=== PATIENT | female | born 1975 | race Caucasian/White ===

== ENCOUNTER → 2017-04-07 | Outpatient (CLI) | payer BC | END | disposition home or self-care (01) | LOC: LAB.O 10:43 | PROVIDERS: ATTEND Obstetrics & Gynecology | DX: N94.10 Unspecified dyspareunia (principal); N94.6 Dysmenorrhea, unspecified ==

== ENCOUNTER → 2017-08-21 | Outpatient (CLI) | payer BC ==
--- NOTE | 2017-08-23 13:40 | MAM ---
EXAM DESCRIPTION: 3D Screening BILATERAL : Digital Mammography. CLINICAL HISTORY: 42 years Female SCREENING . No complaints. No family history of breast cancer. Premenopausal.. COMPARISON: Baseline study at this facility.. No prior reports available. TECHNIQUE: Bilateral CC and MLO projection full-field images, 3-D tomosynthesis digital mammographic technique. Also bilateral synthesized CC/ MLO full-field images. CAD not utilized. FINDINGS: The breast parenchymal density pattern is: Heterogeneously dense breast tissue, which may obscure small masses. No skin thickening or nipple retraction bilateral solitary microcalcifications. Asymmetric collection of dense fibroglandular tissues in the upper-outer quadrant of the middle and posterior third of the right breast at the 900-200 clock position. Scattered small microcalcifications. Similar appearing density much smaller in the upper outer quadrant of the left breast also associated with microcalcifications. Location in the left breast is posterior third at 1000 clock position. No suspicious microcalcifications bilaterally. IMPRESSION: BI-RADS CATEGORY: 0 - INCOMPLETE- Need additional imaging evaluation. FOLLOW-UP: Recall for additional imaging: Bilateral 2-D digital full field LM projections followed by targeted bilateral breast ultrasound of the regions of interest.. Written communication concerning the IMPRESSION and Follow-up, will be mailed to the patient and referring health care provider. Electronically signed by: Conrado Vega MD 08/23/2017 1:39 PM MILLWORK ESTIMATOR
== END ==
LOC: MAMMO 09:55
PROVIDERS: ATTEND Obstetrics & Gynecology
DX: Z12.31 Encounter for screening mammogram for malignant neoplasm of breast (principal)
CPT/HCPCS: 77063; G0202

== ENCOUNTER → 2017-08-22 | Outpatient (CLI) | payer BC | LOC: LAB.O 08:10 | PROVIDERS: ATTEND Obstetrics & Gynecology | DX: Z01.411 Encounter for gynecological examination (general) (routine) with abnormal findings (principal); I10 Essential (primary) hypertension ==

== ENCOUNTER → 2017-09-12 | Outpatient (CLI) | payer BC ==
--- NOTE | 2017-09-13 11:24 | US ---
EXAM DESCRIPTION: Breast,Bilateral: Ultrasound CLINICAL HISTORY: 42 yearsFemaleABNORMAL MAMMO COMPARISON: Digital 3-D tomosynthesis bilateral breast on this visit. Bilateral 3-D tomosynthesis digital screening study 08/21/2017. TECHNIQUE: Transcutaneous scanning of the bilateral breasts utilizing two-dimensional and Doppler modes. Scanning performed by the product operations associate and Dr. Vega. FINDINGS: Scanning of the left breast at the 100 clock position 7 cm from the nipple and the 1000 clock position 7 cm from the nipple. Also scanning the right breast at the 1000 clock position 8 cm from the nipple. Predominantly fibroglandular tissues are noted in the regions of interest bilaterally. In the left breast is a oval-shaped well-circumscribed hypoechoic lesion with parallel orientation with no posterior acoustic features. 7.6 x 5.3 mm. Minimal central vascularity. Most likely a lymph node. IMPRESSION: 1. Bi-Rads Category 2: Benign. 2. Please refer to bilateral 3-D tomosynthesis digital diagnostic mammographic examination and report on this visit. The FINDINGS and the follow-up plan were reviewed in person with the patient after the examination. Written communication explaining the IMPRESSION and follow-up will be mailed to the patient and referring care provider. Electronically signed by: Conrado Vega MD 09/13/2017 11:23 AM BUREAU DIRECTOR
--- NOTE | 2017-09-13 11:25 | MAM ---
EXAM DESCRIPTION: 3D Diagnostic, Bilateral : Digital Mammography. CLINICAL HISTORY: 42 years Female ABNORMAL MAMMO . Bilateral regions of focal asymmetry.. COMPARISON: 3-D digital screening bilateral study 08/21/2017. Bilateral breast ultrasound following this examination.. Report from prior examination also reviewed. TECHNIQUE: Bilateral LM projection full-field images, 3-D tomosynthesis digital mammographic technique. Also bilateral synthesized LM full-field images. CAD not utilized. FINDINGS: The breast parenchymal density pattern is: Heterogeneously dense breast tissue, which may obscure small masses. No skin thickening or nipple retraction . Again noted is focal asymmetry in the 1000 clock position of the upper outer quadrant of the right breast, 9-10 cm from the nipple. No ascites scattered microcalcifications. Also focal asymmetry in the left breast at the 100 clock position 7 cm from the nipple in the middle third of the breast. No associated abnormal appearing microcalcifications bilaterally. ULTRASOUND: Scanning of the left breast at the 100 clock position 7 cm from the nipple and the 1000 clock position 7 cm from the nipple. Also scanning the right breast at the 1000 clock position 8 cm from the nipple. Predominantly fibroglandular tissues are noted in the regions of interest bilaterally. In the left breast is a oval-shaped well-circumscribed hypoechoic lesion with parallel orientation with no posterior acoustic features. 7.6 x 5.3 mm. Minimal central vascularity. Most likely a lymph node. IMPRESSION: BI-RADS CATEGORY: 2 - BENIGN FINDINGS. FOLLOW UP: Return to routine digital bilateral screening, one year interval from August 2017. The FINDINGS and the follow-up plan were reviewed in person with the patient after the examination. Written communication explaining the IMPRESSION and follow-up will be mailed to the patient and referring care provider. According to the [employer], yearly mammograms are recommended starting at age 40 and continuing as long as a woman is in good health. Any breast change noted on a breast self-exam should be reported promptly to the patient's healthcare provider. Breast MRI is recommended for women with an approximately 20-25% or greater lifetime risk of breast cancer, including women with a strong family history of breast or ovarian cancer and women who have been treated for Hodgkin's disease. A negative mammographic report should not delay tissue diagnosis in patients with significant clinical history or physical findings. Extremely dense breast tissue limits the sensitivity of digital mammography. Electronically signed by: Conrado Vega MD 09/13/2017 11:24 AM HAND STAMPER
== END | disposition home or self-care (01) ==
LOC: MAMMO 10:22
PROVIDERS: ATTEND Obstetrics & Gynecology
DX: R92.8 Other abnormal and inconclusive findings on diagnostic imaging of breast (principal)
CPT/HCPCS: 76641; G0204; G0279

== ENCOUNTER 2018-12-10 07:56 | Inpatient (IN) | payer SELFPAY ==
[2018-12-10] MEDS ORDERED: PANTOPRAZOLE SODIUM IV 40 MG VIAL IV ONE (08:24)
[2018-12-10] MEDS ORDERED: MORPHINE SULFATE INJ 10 MG/ML VIAL IV ONE ×2 (08:24→09:47)
[2018-12-10] MEDS ORDERED: ONDANSETRON INJ 4 MG/2 ML VIAL IV ONE (08:24)
[2018-12-10] MEDS ORDERED: SODIUM CHLORIDE 0.9% 1000ML 1,000 ML IVS ONE (08:24)
[2018-12-10] MEDS ORDERED: ceFAZolin SODIUM 2 GRAMS PREMI 2 GM in PREMIX BAG 1 BAG IVPB ONE (08:26)
[2018-12-10] MEDS ORDERED: ceFAZolin SODIUM 2 GRAMS PREMI 50 ML IVPB ONE (08:40)
[2018-12-10] MEDS ORDERED: PROMETHAZINE HCL INJ 25 MG/ML VIAL ONE ×3 (09:38→19:41)
[2018-12-10] MEDS ORDERED: SODIUM CHLORIDE 0.9% 50ML 50 ML ONE ×3 (09:39→19:41)
[2018-12-10] MEDS ORDERED: MAGNESIUM SULFATE PREMIX 4GM 4 GM in PREMIX BAG 1 BAG IVPB ONE (09:46)
[2018-12-10] MEDS ORDERED: POTASSIUM CHLORIDE INJ 40 MEQ 40 MEQ in SODIUM CHLORIDE 0.9% 250ML 250 ML IVPB ONE (09:47)
[2018-12-10] MEDS ORDERED: PROMETHAZINE HCL INJ 25 MG in SODIUM CHLORIDE 0.9% 50ML 50 ML IVPB ONE (09:49)
[2018-12-10] MEDS ORDERED: MAGNESIUM SULFATE PREMIX 4GM 50 ML IVPB ONE (10:08)
[2018-12-10] MEDS ORDERED: SODIUM CHLORIDE 0.9% 250ML 250 ML ONE (10:11)
--- NOTE | 2018-12-10 10:11 | CT ---
EXAM DESCRIPTION: Abdomen/Pelvis w/Contrast CLINICAL HISTORY: 43 years Female, severe abd pain, nv 24 hours COMPARISON: CT abdomen and pelvis 11/25/2010. TECHNIQUE: CT of the abdomen and pelvis was acquired with IV contrast material. Coronal and sagittal reformations were provided. This exam was performed according to our departmental dose-optimization program, which includes automated exposure control, adjustment of the mA and/or kV according to patient size and/or use of iterative reconstruction technique. CT ABDOMEN FINDINGS: Lung bases: Clear. Liver: There is hypoattenuation of the liver parenchyma. The liver is enlarged measuring up to 20.1 cm at the midclavicular line. Gallbladder and biliary: Mild hyperdensity within the gallbladder may represent vicarious excretion of contrast although gallbladder sludge diffusely: The gallbladder may be present. No biliary ductal dilatation. Pancreas: Pancreas appears diffusely edematous with moderate peripancreatic shavings present. There is homogeneous enhancement of the pancreatic parenchyma. No surrounding fluid collection. Spleen: Normal. Kidneys and adrenal glands: Normal. GI tract: Mildly dilated distal esophagus without mucosal thickening but with moderate air-fluid level present. Stomach is unremarkable. There is mucosal thickening and surrounding stranding of the duodenum. No small bowel traction. Peritoneal cavity: Mild intra-abdominal free fluid is present. No intra-abdominal free air. Retroperitoneum and lymph nodes: Normal. Vascular: Minimal atherosclerosis. No evidence of portal vein thrombosis or splenic artery aneurysm. Musculoskeletal and soft tissues: No acute fracture or aggressive appearing osseous lesion. Soft tissues are unremarkable. CT PELVIS FINDINGS: GI tract: There is moderate mucosal thickening and pericolic stranding involving the distal colon. Appendix is absent. Urinary bladder: Normal. Uterus and adnexa: Uterus not well-visualized and may be small or atrophic versus surgically absent. Phleboliths are within the right and left hemipelvis. IMPRESSION: 1. Pancreatic findings likely representing acute edematous pancreatitis with moderate perinephric fluid and stranding but without discrete fluid collection. Recommend lab correlation with pancreatic enzymes. 2. Thickening and surrounding stranding of the duodenum may represent reactive duodenitis from adjacent pancreatic process. 3. Thickening and surrounding stranding of the transverse colon. This is nonspecific and may represent superimposed infectious or inflammatory colitis versus reactive process from the adjacent pancreatitis. 4. Mild ascites. 5. Enlarged and fatty liver. Electronically signed by: Aly Ding MD 12/10/2018 10:09 AM QUARTER TRIMMER
[2018-12-10] MEDS ORDERED: POTASSIUM CHLORIDE 40mEq 20ML VIAL ONE (10:12)
--- NOTE | 2018-12-10 11:44 | US ---
EXAM DESCRIPTION: Abdomen,Limited: ULTRASOUND. CLINICAL HISTORY: pancreatitis, eval ruq COMPARISON: CT scan of abdomen and pelvis on this visit. TECHNIQUE: Transabdominal scannin-dimensional and Doppler modes. FINDINGS: Gallbladder: normal size, shape, echogenicity; no intraluminal stones or sludge. No fluid around the gallbladder. No wall thickening. 1.1 mm. Non-tender with transducer pressure. Common bile duct: caliber 2.7 mm within normal limits. Liver: Increased echogenicity; contour liver capsule smooth where seen. No fluid around the liver. Intrahepatic biliary ducts normal caliber. Doppler hepatopedal flow and normal caliber portal vein.. Long axis right lobe 15.6 cm. Pancreas: normal size and echogenicity. Duct not seen. Proximal abdominal aorta: Normal caliber proximal and mid segment. Distal segment obscured by intestinal gas.. IVC: visualized and normal caliber. Right kidney: long axis measures 10.8 cm. Normal Echogenicity. Normal cortical thickness. No hydronephrosis IMPRESSION: Fatty liver but not enlarged. Vascularity unremarkable. Normal intrahepatic and extrahepatic ducts. No ascites. Gallbladder pancreas are negative. Right kidney unremarkable. Major vessels normal caliber. Electronically signed by: Conrado Vega MD 12/10/2018 11:41 AM JITNEY DRIVER
[2018-12-10] MEDS ORDERED: KCL 40MEQ/NS 1,000 ML IVS ONE (12:00)
--- NOTE | 2018-12-10 12:01 | ED.PDOC ---
History of Present Illness - General Chief Complaint: Abdominal Pain Time Seen by Provider: 12/10/18 07:58 Source: patient Exam Limitations: no limitations - History of Present Illness Initial Comments: the patient is a 43-year-old female presenting to the emergency room secondary to 24 hours of severe nausea and vomiting and abdominal pain. Abdominal pain is primarily periumbilical. It is worse with movement. It is worse with eating. It is worse with palpation. No history of any trauma. No history of any pancreatitis in the past. No heavy drinking. She does have a history of apparently untreated hypertension and cholesterolemia or hypyceridemia. Her only medication is lisinopril. She does have a family history of pancreatitis with her mother having had pancreatitis. The patient reports that for the last 4 months she has had some mild nausea with intermittent vomiting in the mornings. There is some questionable history of gastroesophageal reflux disease. Otherwise she appears to have largely been healthy with the exception of multiple surgeries and a hysterectomy. Timing/Duration: 24 hours Severity: severe Improving Factors: nothing Worsening Factors: eating, movement Associated Symptoms: diaphoresis, fever/chills, loss of appetite, nausea/vomiting Allergies/Adverse Reactions: Allergies NO KNOWN ALLERGY Allergy (Verified 12/10/18 08:10) Home Medications: Ambulatory Orders ALPRAZolam [Xanax] 0.5 mg PO PRN 12/10/18 Lisinopril 10 mg PO DAILY 12/10/18 Review of Systems - Review of Systems Constitutional: States: malaise, weakness EENTM: States: no symptoms reported Respiratory: States: no symptoms reported Cardiology: States: no symptoms reported Gastrointestinal/Abdominal: States: abdominal pain, nausea, vomiting. Denies: constipation, diarrhea Genitourinary: States: no symptoms reported Musculoskeletal: States: no symptoms reported Skin: States: no symptoms reported Neurological: States: no symptoms reported Endocrine: States: no symptoms reported All other Systems: No Change from Baseline Past Medical History (General) - Patient Medical History Hx Seizures: No Hx Stroke: No Hx Dementia: No Hx Asthma: No Hx of COPD: No Hx Cardiac Disorders: No Hx Congestive Heart Failure: No Hx Pacemaker: No Hx Hypertension: Yes Hx Thyroid Disease: No Hx Diabetes: Yes - pre-diabetic Hx Gastroesophageal Reflux: No Hx Renal Disease: No Hx Cancer: No Hx of HIV: No Hx Hepatitis C: No Hx MRSA: No Surgical History: appendectomy, Hysterectomy - Vaccination History Hx Tetanus, Diphtheria Vaccination: No Hx Influenza Vaccination: No Hx Pneumococcal Vaccination: No Immunizations Up to Date: No - Social History Hx Tobacco Use: No Hx Chewing Tobacco Use: No Hx Alcohol Use: No Hx Substance Use: No Hx Substance Use Treatment: No Hx Depression: No Feels Threatened In Home Enviroment: No Feels Threatened In a Relationship: No Hx Physical Abuse: No Hx Emotional Abuse: No Hx Suspected Abuse: No - Female History Patient is a Female of Child Bearing Age (10 -59 yrs old): No Patient : No Family Medical History - Family History Mother Family History: Unknown Living Status: Unknown Physical Exam - Physical Exam General Appearance: Alert, Obvious distress, Ill Appearing Eye Exam: bilateral normal Ears, Nose, Throat: hearing grossly normal, normal ENT inspection, normal pharynx Neck: full range of motion, supple, normal inspection Respiratory: lungs clear, normal breath sounds, no respiratory distress, no accessory muscle use Cardiovascular/Chest: normal peripheral pulses, no edema, tachycardia - sinus tachycardia on telemetry monitoring Peripheral Pulses: radial,right: 2+, radial,left: 2+, dorsalis pedis,right: 2+, dorsalis pedis,left: 2+ Gastrointestinal/Abdominal: other - the patient has severe periumbilical pain. No definite palpable mass. She does have guarding. She does have peritoneal irritation. Rectal Exam: deferred Back Exam: no CVA tenderness, no vertebral tenderness Extremity: normal range of motion, non-tender, normal inspection, no pedal edema, normal capillary refill Neurologic: sign hanger supervisor II-XII nml as tested, alert, normal mood/affect, oriented x 3 Skin Exam: normal color Comments: Vital Signs (72 hours) 12/10/18 12/10/18 12/10/18 08:12 09:00 10:00 Temperature 97 F L Pulse Rate [ 143 H 126 H 120 H Left Apical] Respiratory 20 24 20 Rate Blood Pressure 147/121 149/116 151/116 [Left Arm] O2 Sat by Pulse 97 99 99 Oximetry 12/10/18 11:00 Temperature Pulse Rate [ 113 H Left Apical] Respiratory 25 H Rate Blood Pressure 139/11 [Left Arm] O2 Sat by Pulse 98 Oximetry Progress - Progress Progress: 12/10/18 12:05 the patient's a 43-year-old female presented secondary to significant pancreatitis. Source of the pancreatitis is uncertain but may be related to untreated hyperlipidemia. No history of any trauma, suspicious medications or alcohol use. She does have a family history of pancreatitis. The patient has received a liter of IV fluids. We are correcting the hypokalemia and hypomagnesemia. Calcium is also slightly low and should be followed. At the next blood draw she should also have a LDH performed along with a lipid panel. Pain has been well controlled with 4 mg of morphine and the nausea controlled with IV Phenergan. She has been made nothing by mouth at this point. She did receive a dose of Ancef upon arrival due to concern for the possibility of ischemic bowel or perforation given the clinical presentation initially. Continuation of this is likely not warranted given the findings. Her glucose was also moderately elevated and should be followed. she does also have a mild lactic acidosis and levels can be rechecked to make sure this is improving at a later draw. Admit for continued care. 12/10/18 12:08 - Results/Orders Results/Orders: 12/10/18 08:15 EKG STAT 12/10/18 08:25 Telemetry .CONTINUOUS 12/10/18 08:34 BLOOD CULTURE Stat 12/10/18 09:30 Hold Metformin x 48Hrs [id number] 12/10/18 09:47 Potassium Chloride Inj 40 Meq 40 meq Sodium Chloride 0.9% 250Ml [NS 250ml] 250 ml IVPB ONCE 12/10/18 12:00 KCl 40Meq/Ns [NS W/ KCL 40 meq/Liter] 1,000 ml IVS ONCE Laboratory Results - last 24 hr 12/10/18 12/10/18 12/10/18 08:34 08:34 08:34 WBC 8.5 RBC 4.61 Hgb 16.5 H Hct 47.8 H MCV 103.8 H MCH 35.9 H MCHC 34.6 RDW 15.1 H Plt Count 155 MPV 8.0 Absolute Neuts (auto) 7.60 H Absolute Lymphs (auto) 0.30 L Absolute Monos (auto) 0.60 Absolute Eos (auto) 0.00 Absolute Basos (auto) 0.00 Neutrophils % 89.4 H Lymphocytes % 3.8 L Monocytes % 6.5 Eosinophils % 0.0 L Basophils % 0.3 PT 11.8 H INR 1.18 H PTT (SP) 22.2 D-Dimer, Quantitative 11.50 H* Sodium 133 L Potassium 3.0 L Chloride 94 L Carbon Dioxide 18 L Anion Gap 24.0 H BUN 15 Creatinine 0.86 BUN/Creatinine Ratio 17.4 Random Glucose 202 H Serum Osmolality 273.0 L Lactic Acid Calcium 7.2 L Magnesium 1.1 L Total Bilirubin 2.3 H* AST 207 H ALT 134 H Alkaline Phosphatase 110 Creatine Kinase 152 H CK-MB (CK-2) 3.2 CK-MB (CK-2) % 2.11 Troponin I < 0.02 B-Natriuretic Peptide 7.4 Serum Total Protein 7.1 Albumin 3.7 Globulin 3.4 Albumin/Globulin Ratio 1.1 Amylase 903 H* Lipase 1819 H Serum HCG, Qual Urine Color Urine Appearance Urine pH Ur Specific [place] Urine Protein Urine Glucose (UA) Urine Ketones Urine Blood Urine Nitrite Urine Bilirubin Urine Urobilinogen Ur Leukocyte Esterase Urine RBC Urine WBC Ur Epithelial Cells Urine Bacteria 12/10/18 12/10/18 12/10/18 08:34 08:34 10:32 WBC RBC Hgb Hct MCV MCH MCHC RDW Plt Count MPV Absolute Neuts (auto) Absolute Lymphs (auto) Absolute Monos (auto) Absolute Eos (auto) Absolute Basos (auto) Neutrophils % Lymphocytes % Monocytes % Eosinophils % Basophils % PT INR PTT (SP) D-Dimer, Quantitative Sodium Potassium Chloride Carbon Dioxide Anion Gap BUN Creatinine BUN/Creatinine Ratio Random Glucose Serum Osmolality Lactic Acid 4.1 H* Calcium Magnesium Total Bilirubin AST ALT Alkaline Phosphatase Creatine Kinase CK-MB (CK-2) CK-MB (CK-2) % Troponin I B-Natriuretic Peptide Serum Total Protein Albumin Globulin Albumin/Globulin Ratio Amylase Lipase Serum HCG, Qual Negative Urine Color Charito H Urine Appearance Clear Urine pH 7.0 Ur Specific [place] 1.015 Urine Protein 100 H Urine Glucose (UA) Negative Urine Ketones 40 H Urine Blood Small H Urine Nitrite Negative Urine Bilirubin Small H Urine Urobilinogen 0.2 Ur Leukocyte Esterase Negative Urine RBC 0-1 Urine WBC 0 Ur Epithelial Cells 1-3 Urine Bacteria 0 EKG shows sinus tachycardia at 134 bpm. Mild left atrial dilation. No definitive ST segment or T-wave changes concerning for immediate ischemia. Normal axis. Normal QT interval. CT scan of abdomen and pelvis shows pancreatitis. No obvious acute pathology of the liver or biliary system. No pseudocyst formation. She does have mild likely reactive inflammatory changes of the duodenum and the adjacent large bowel. Ultrasound of right upper quadrant shows no acute pathology. Departure - Departure Clinical Impression: Acute pancreatitis Qualifiers: Pancreatitis type: idiopathic Acute pancreatitis complication: no infection or necrosis Qualified Code(s): K85.00 - Idiopathic acute pancreatitis without necrosis or infection Disposition: Admit Patient Departure Forms: ED Discharge - Pt. Copy, Patient Portal Self Enrollment Referrals: Rajeev Guallpa MD [Primary Care Provider] - 1-2 Weeks Home Medications: Ambulatory Orders ALPRAZolam [Xanax] 0.5 mg PO PRN 12/10/18 Lisinopril 10 mg PO DAILY 12/10/18 Decision To Admit - Decistion To Admit Decision to Admit Reason: Medical Nature Decision to Admit Date: 12/10/18 Decision to Admit Time: 12:09
--- NOTE | 2018-12-10 12:25 | HP ---
SUPERVISING PHYSICIAN: Everett Loredo MD CHIEF COMPLAINT: Severe abdominal pain. HISTORY OF PRESENT ILLNESS: Ms. Chapman is a 43-year-old, female patient that presented to the Emergency Room today secondary to well over 24 hours of severe nausea, vomiting and associated abdominal pain. She associates the pain primarily to her umbilical region and it is worse with any movement, eating or direct palpation. She denies any significant history of trauma and has never had any past history of pancreatitis. She denies any significant alcohol usage. She does have a history of hypertension on lisinopril. She reports there is a strong family history of pancreatitis with her mother having episodes of pancreatitis, uncertain etiology, that she felt was related to cholelithiasis. She has had random nausea and vomiting since Monday. She reports she and her had eaten at a [employer] restaurant the night before and both had started feeling a little bit ill with some nausea on Monday night. She notes she has been unable to hold any significant oral intake in the last 24 hours. Past surgical history is significant for total hysterectomy, three sections and previous appendectomy. Initial labs in the Emergency Room, showed she had elevated amylase and lipase with lipase 1819. She was showing significantly elevated anion gap indicating moderate metabolic acidosis as well as it was noted she had an elevated lactic acid of 12.1. Calcium was low at 7.2. Magnesium low at 1.1. Liver enzymes were showing elevation with total bilirubin 2.3, AST 207 and ALT 134, alkaline phosphatase was normal. Urinalysis shows 48 ketones, small amount of blood, bilirubin and 100 protein. Otherwise, microscopic was within normal limits. Her initial radiographic workup included a CT of the abdomen and pelvis that was significant for findings concerning for pancreatitis with a moderate amount of perinephric fluid, stranding without any discrete fluid collections. There was also note of thickening and surrounding stranding of the duodenum and transverse colon, all suspicious for adjacent pancreatitis. She was also noted to have enlarged and fatty liver. She then had an abdominal ultrasound and per radiologic interpretation there was again note of a fatty liver, but not enlarged, vascularity unremarkable and normal intrahepatic and extrahepatic ducts. No ascites. Gallbladder and pancreas were negative, but pancreatic ducts were not seen. The common bile duct was noted to be within normal limits at 2.7 mm with no wall thickening or fluid around the gallbladder as well as no intraluminal stones or sludge. She was given IV fluids, pain medicine and antiemetics in the Emergency Room for treatment of acute pancreatitis and is now going to be admitted for further treatment and evaluation. The patient was admitted in stable condition. PAST MEDICAL HISTORY: 1. Hypertension. PAST SURGICAL HISTORY: 1. section x3. 2. Total hysterectomy. 3. Appendectomy. CURRENT MEDICATIONS: ALLERGIES: FAMILY HISTORY: Positive for pancreatitis in her mother secondary to cholelithiasis. SOCIAL HISTORY: The patient is a real estate attorney, and lives in [place]. She has three children. She denies any alcohol or illicit drug use. She does not smoke tobacco. REVIEW OF SYSTEMS: CONSTITUTIONAL: Positive for general malaise, weakness. No reported fevers or unintentional weight changes. HEENT: Denies sore throat, earaches, nasal congestion, visual disturbances. RESPIRATORY: Negative for coughing, wheezing, shortness of breath. CARDIOVASCULAR: Denies chest pain, palpitations or syncopal episodes. GASTROINTESTINAL: As noted in history of present illness with abdominal pains, nausea and vomiting. She denies any significant constipation or diarrhea. GENITOURINARY: Denies dysuria, hematuria, polyuria. SKIN: No reported rashes, lesions or unexplained bruising. NEUROLOGIC: Negative for ataxia, seizures, headaches, syncopal episodes or other focal deficits. PHYSICAL EXAMINATION: VITAL SIGNS: Temperature 98.4. Pulse 122. Blood pressure 137/107. Respiratory rate 26. Saturation 97% on room air. Admission weight 73.6 kg. GENERAL: On admission to the Medical/Surgical Floor, the patient was ill appearing, obviously uncomfortable, but appears to be in no acute distress. She is alert. HEENT: Tympanic membranes clear bilaterally. Oropharynx is pink with notable dry mucous membranes. No lesions. NECK: Supple, nontender with full range of motion. No jugular venous distention noted. RESPIRATORY: Lungs clear to auscultation bilaterally without any rhonchi, wheezes, or rales. CARDIOVASCULAR: Regular rate and rhythm without any appreciable murmurs, gallops, or rubs, but noted to be in sinus tachycardia on bedside telemetry. ABDOMEN: Notably tender in the periumbilical region with some guarding. No obvious peritoneal signs. Abdomen is distended and soft with hypoactive bowel sounds. RECTAL: Deferred. BACK: No notable CVA tenderness, vertebral tenderness. EXTREMITIES: There is no cyanosis, clubbing or edema. NEUROLOGIC: The patient is alert and oriented times three. Cranial nerves II- XII are grossly intact. SKIN: [place], warm and dry. LABORATORY: CBC shows white count 8,500, hemoglobin 16.5, hematocrit 47.8, platelet count 155,000 with difficult showing an early left shift. Coagulation studies did show a D-dimer of 11.5, PT 11.8, INR 1.18, PTT 22.2. Chemistries showed sodium 133, potassium 3.0, initial carbon dioxide 18, anion gap 24, BUN 15, creatinine 0.86, serum osmolality 273, glucose 202, lactic acid 4.1, calcium 7.2, magnesium 1.1, total bilirubin elevated at 2.3, AST 207, ALT 134, alkaline phosphatase normal at 110. Troponin less than 0.02. Lipid panel showed normal triglycerides 86, cholesterol 189, amylase elevated at 903 with lipase 1819. Serum was negative. C-reactive protein pending. Urinalysis showed 100 protein, 40 ketones, small amount of blood, small amount of bilirubin. Microscopic was within normal limits. MICROBIOLOGY: Blood cultures pending. RADIOLOGY: CT of the abdomen and pelvis with contrast was consistent with pancreatic findings likely representing acute edematous pancreatitis with a moderate perinephric fluid and stranding without discrete fluid collection. There was note of thickening and surrounding stranding of the duodenum which may represent reactive duodenitis and adjacent pancreatic process. There is also note of thickening and surrounding stranding of transverse colon, nonspecific and may represent superimposed infection versus inflammatory colitis versus reactive process from adjacent pancreatitis along with some mild ascites and enlarged and fatty liver. She then had an ultrasound of the abdomen and per radiologic interpretation showed fatty liver but not enlarged, vascularity unremarkable, normal intrahepatic and extrahepatic ducts. There was no ascites. Gallbladder and pancreas negative. Kidneys were negative. Major vessels were normal caliber. ASSESSMENT: 1. Acute pancreatitis, uncertain etiology. 2. Severe abdominal pain secondary to #1 with concerns for developing duodenitis and early colitis, likely due to current pancreatitis, awaiting surgical consultation. 3. Severe electrolyte imbalance to include hypomagnesemia, hypocalcemia and hypokalemia due to current metabolic acidosis as noted with carbon dioxide of 18. 4. Metabolic acidosis with elevated anion gap, low carbon dioxide secondary to severe dehydration and lactic acidosis from acute pancreatitis. 5. Elevated liver functions with noted fatty liver on diagnostic studies including CT and ultrasound, uncertain etiology. 6. Severe dehydration secondary to acute pancreatitis with nausea and vomiting requiring aggressive fluid resuscitation. 7. Hypertension with tachycardia, probably due to underlying acute inflammatory response and augmented by acute stress response with the patient having acute pancreatitis. 8. Elevated D-dimer, uncertain etiology, probably secondary to underlying pancreatitis. 9. History of hypertension, poorly controlled and exacerbated by underlying pancreatitis and current stress response due to pain. PLAN: The patient is going to be admitted to the Medical/Surgical Floor for initiation of treatment for acute pancreatitis. We will provide aggressive fluid management, pain control with Dilaudid and antiemetics as needed. She will be NPO at this point. We will await consultation and recommendations from Dr. Mendoza. We will plan to follow her labs closely. She was given 4 grams of magnesium in the Emergency Room. I will replace her calcium with 2 grams of calcium gluconate. We will do BMPs and calcium, magnesium and lactic acids during fluid resuscitation q.4h. until they are stable. We will repeat labs and radiographic studies as needed in the morning. We anticipate her length of stay to be at least two to three days. She will be on DVT prophylaxis per protocol. Until she can transition to outpatient management, we will continue to monitor the patient closely and treat as needed. We will await Dr. Mendoza's consultation. #[id number] [facility]
[2018-12-10] MEDS: SODIUM CHLORIDE 0.9% 1000ML 1,000 ML IVS PRN ×3 (13:15→17:20)
[2018-12-10] MEDS ORDERED: ONDANSETRON INJ 4 MG/2 ML VIAL IV PRN (13:35)
[2018-12-10] MEDS ORDERED: HYDROmorphone HCL INJ 2 MG/ML VIAL IV ONE (13:38)
[2018-12-10] MEDS ORDERED: HYDROmorphone HCL INJ 2 MG/ML VIAL IV PRN (13:38)
[2018-12-10] MEDS ORDERED: CALCIUM GLUCONATE INJ 1 GM/10 ML VIAL IV ONE (13:52)
[2018-12-10] MEDS: IV SET AND CAP CHANGE INJ INJ SCH (14:30)
[2018-12-10] MEDS: PROMETHAZINE HCL INJ 25 MG in SODIUM CHLORIDE 0.9% 50ML 50 ML IVPB PRN ×2 (15:30→19:47)
--- NOTE | 2018-12-10 17:12 | CONS ---
DATE OF CONSULTATION: 12/10/18 HISTORY OF PRESENT ILLNESS: The patient is a 43-year-old female who was admitted through the Emergency Room with a 24 hour history of abdominal pain with nausea and vomiting. The patient states it started Monday morning and this was after eating a very heavy [place] dinner the night before. There is no previous history of pancreatitis, hepatitis or jaundice. She denies alcohol use. There is a family history with her mother having pancreatitis. There is a question of reflux disease. She has had C-sections, hysterectomy and appendectomy. She denies currently nausea, fever, chills or diaphoresis. PAST MEDICAL HISTORY: 1. Hypertension. PAST SURGICAL HISTORY: 1. section x3. 2. Total hysterectomy. 3. Appendectomy. CURRENT MEDICATIONS: 1. Xanax. 2. Lisinopril. ALLERGIES: NO KNOWN DRUG ALLERGIES. FAMILY HISTORY: As noted, there is a history of pancreatitis. SOCIAL HISTORY: The patient works in the [employer] business. She does not use tobacco or alcohol and denies drug use. PHYSICAL EXAMINATION: GENERAL: The patient is awake, alert, in mild distress VITAL SIGNS: The patient is currently afebrile, normotensive. HEENT: Sclerae nonicteric. Mucous membranes moist. NECK: Without adenopathy. BACK: Without CVA tenderness. CHEST: Equal breath sounds anteriorly. ABDOMEN: Firm, tender in the right side with guarding and some referred tenderness. Bowel sounds are decreased. PELVIC/RECTAL: Deferred. EXTREMITIES: Without cyanosis, clubbing or edema. LABORATORY: White count 8.5, hemoglobin 16.5, platelet count 155,000, 89% neutrophils. Chemistries reveal potassium 3.7 on admission, creatinine 0.82, lactic acid 2.5, calcium 6.3. AST, ALT and bilirubin are all elevated. Alkaline phosphatase within normal limits. CK 152, CK-MB 3.2, C-reactive protein 14, amylase 903, lipase 1819. HCG negative. Triglycerides [address] scan of the abdomen reveals inflammatory process involving the pancreas with a small amount of peripancreatic fluid, normal ductal structures with possibility of sludge in the gallbladder. Ultrasound of the gallbladder reveals a normal gallbladder and a normal ductal system. ASSESSMENT: Acute pancreatitis, doubt alcoholic pancreatitis, doubt associated with triglyceridemia. Most likely biliary with the elevation of liver functions and the amylase and lipase. PLAN: Continue her NPO. Cover with antibiotics if she develops fever after blood cultures and follow her with serial lab. She also has mild dehydration which needs continued resuscitation from that point of view. [facility][id number] [facility]
[2018-12-10] MEDS ORDERED: CALCIUM GLUCONATE INJ 2 GM in SODIUM CHLORIDE 0.9% 100ML 100 ML IVPB ONE ×2 (17:40→22:58)
[2018-12-10] MEDS ORDERED: CALCIUM GLUCONATE INJ 1 GM/10 ML VIAL ONE ×2 (18:37)
[2018-12-10] MEDS ORDERED: SODIUM CHLORIDE 0.9% 100ML 100 ML IVPB ONE (18:40)
[2018-12-10] MEDS ORDERED: LACTATED RINGERS 1,000 ML ONE (19:41)
[2018-12-10] MEDS: LACTATED RINGERS 1,000 ML IVS PRN (19:58)
[2018-12-10] MEDS: ALPRAZolam 0.5 MG TAB PO PRN (21:05)
[2018-12-10] MEDS ORDERED: MAGNESIUM SULFATE PREMIX 2GM 2 GM in PREMIX BAG 1 BAG IVPB ONE (22:58)
[2018-12-10] MEDS ORDERED: KCL 40MEQ/NS 1,000 ML IVS PRN (23:02)
[2018-12-10] MEDS ORDERED: MAGNESIUM SULFATE PREMIX 2GM 50 ML IVPB ONE (23:27)
[2018-12-11] MEDS ORDERED: SODIUM CHLORIDE 0.9% 100ML 100 ML IVPB ONE ×2 (00:51→10:01)
[2018-12-11] MEDS: LACTATED RINGERS 1,000 ML IVS PRN (05:50)
[2018-12-11] MEDS: ALPRAZolam 0.5 MG TAB PO PRN (05:55)
--- NOTE | 2018-12-11 07:34 | RAD ---
EXAM DESCRIPTION: Abdomen Flat Upright CLINICAL HISTORY: acute pancreatitis COMPARISON: None. FINDINGS: AP supine and upright views of the abdomen show a nonspecific, nonobstructive bowel gas pattern with no evidence for free intraperitoneal air. No air-filled dilated loops of small bowel are seen. No significant air-fluid levels are identified. No obvious organomegaly is seen. No abnormal calcifications are seen in the expected location of the renal collecting systems. Visualized lung bases are unremarkable. IMPRESSION: Nonspecific abdominal series Electronically signed by: Yash Anderson MD 12/11/2018 7:31 AM DIGITAL MARKETING ANALYST
[2018-12-11] MEDS ORDERED: CALCIUM GLUCONATE INJ 1 GM/10 ML VIAL IV ONE (07:47)
[2018-12-11] MEDS ORDERED: SODIUM CHL 0.9% 50ML MIN-BAG+ 50 ML IVPB ONE ×2 (08:32→19:23)
[2018-12-11] MEDS ORDERED: cefTRIAXone SODIUM 1 GM VIAL ONE ×2 (08:33→19:23)
[2018-12-11] MEDS ORDERED: NON-FORMULARY MEDICATION 1 EA MIS (Lisinopril [Lisinopril] 10 MG) PO SCH (09:00)
[2018-12-11] MEDS: cefTRIAXone SODIUM 1 GM in SODIUM CHL 0.9% 50ML MIN-BAG+ 50 ML IVPB SCH ×2 (09:10→20:22)
[2018-12-11] MEDS ORDERED: CALCIUM GLUCONATE INJ 2 GM in SODIUM CHLORIDE 0.9% 100ML 100 ML IVPB ONE (10:00)
[2018-12-11] MEDS: CALCITRIOL 0.25 MCG CAP PO SCH (11:16)
[2018-12-11] MEDS: LISINOPRIL 10 MG TAB PO SCH (11:16)
[2018-12-11] MEDS ORDERED: METOPROLOL TARTRATE INJ 5 MG/5 ML VIAL IV SCH (12:00)
[2018-12-11] MEDS: SODIUM CHLORIDE 0.9% (FLUSH) 10 ML SYG IV PRN ×2 (12:02→16:16)
[2018-12-11] MEDS ORDERED: FUROSEMIDE INJ 20 MG/2 ML VIAL IV ONE (15:42)
[2018-12-11] MEDS: BIFIDOBACTERIUM INFANTIS 4 MG CAP PO SCH (16:13)
[2018-12-11] MEDS: KCL 20MEQ/D5 1/2NS 1,000 ML IVS PRN ×2 (16:13→20:22)
[2018-12-11] MEDS ORDERED: PROMETHAZINE W/CODEINE SYR 5 ML UD PO PRN (17:33)
[2018-12-11] MEDS ORDERED: METOPROLOL TARTRATE 25 MG TAB PO ONE (17:38)
[2018-12-11] MEDS ORDERED: METOPROLOL SUCCINATE XL 25 MG TAB PO ONE (19:11)
[2018-12-11] MEDS ORDERED: LACTATED RINGERS 1,000 ML IVS PRN (20:00)
[2018-12-11] MEDS: ENOXAPARIN SODIUM 40 MG/0.4 ML SYG SUBCU SCH (20:23)
[2018-12-12] MEDS: KCL 20MEQ/D5 1/2NS 1,000 ML IVS PRN ×2 (00:59→04:41)
[2018-12-12] MEDS: ALPRAZolam 0.5 MG TAB PO PRN ×2 (01:02→20:42)
[2018-12-12] MEDS ORDERED: cloNIDine HCL 0.1 MG TAB PO ONE (02:33)
[2018-12-12] MEDS ORDERED: SODIUM CHL 0.9% 50ML MIN-BAG+ 50 ML IVPB ONE ×2 (07:24→19:31)
[2018-12-12] MEDS ORDERED: cefTRIAXone SODIUM 1 GM VIAL ONE ×2 (07:25→19:31)
[2018-12-12] MEDS: cefTRIAXone SODIUM 1 GM in SODIUM CHL 0.9% 50ML MIN-BAG+ 50 ML IVPB SCH ×2 (07:56→19:48)
[2018-12-12] MEDS: SODIUM CHLORIDE 0.9% (FLUSH) 10 ML SYG IV PRN ×2 (07:59→14:12)
[2018-12-12] MEDS: BIFIDOBACTERIUM INFANTIS 4 MG CAP PO SCH (08:14)
[2018-12-12] MEDS: LISINOPRIL 10 MG TAB PO SCH (08:14)
[2018-12-12] MEDS: CALCITRIOL 0.25 MCG CAP PO SCH (08:14)
--- NOTE | 2018-12-12 08:28 | PN ---
SUPERVISING PHYSICIAN: Everett Loredo MD DATE: 12/11/18 SUBJECTIVE: The patient notes this morning that the pain is essentially gone. She has not yet made much urine and continues to require fairly aggressive IV management. She has had no nausea or vomiting, but remains NPO at this point. She does remain afebrile. She has had no chest pains, but she notes she still has a little diarrhea. The patient did have a little urinary retention last night and given that she is getting high volume of fluid, we did place a Parekh catheter, which did assist in the patient emptying her bladder and will remain in place through her more aggressive fluid resuscitation. OBJECTIVE: VITAL SIGNS: Temperature 97.8. Pulse 112. Blood pressure 133/96. Respirations 18. Oxygen saturation 96% on room air. Weight 78.1 kg. I&Os show positive balance of 4513 with 5068 in, 555 out. GENERAL: The patient appears to be in no acute distress, very comfortable. She is actually ambulating. She is alert. CHEST: Lungs clear to auscultation. HEART: Regular rate and rhythm. ABDOMEN: Softer today, not distended. There is no notable tenderness on palpation. There is no rebound tenderness, no peritoneal signs. EXTREMITIES: No cyanosis, clubbing or edema. NEUROLOGIC: Alert and oriented times three. LABORATORY: White count 4,400, hemoglobin 13.5, hematocrit 39.3, platelet count 88,000 with differential showing left shift. Chemistries now show normal electrolytes with potassium 3.9, BUN 0.58. Blood sugars 110. Calcium remains low at 5.9 despite multiple replacements with IV calcium. Magnesium is normalized at 2.5. Liver functions are improving with total bilirubin down to 1.8, AST 111, ALT normal at 74, alkaline phosphatase 2. Amylase is down to 398, lipase 776. Urine after placement of Parekh catheter showed 100 protein, 40 glucose, small amount of blood, positive nitrites with 2+ bacteria on microscopic. MICROBIOLOGY: Urine cultures pending. Blood culture pending. RADIOLOGY: Abdominal x-ray this morning per radiologic interpretation showed nonspecific abdominal findings. ASSESSMENT: 1. Acute pancreatitis, uncertain etiology, but likely secondary to biliary sludge, being followed by Dr. Mendoza, showing improvement with initiation of fluids and remains NPO. 2. Severe abdominal pain secondary to #1, resolving with treatment. 3. Severe electrolyte imbalance, secondary to #1, resulting in hypomagnesemia, hypocalcemia, hypokalemia and metabolic acidosis, showing improvement with parenteral replacement of magnesium, calcium and fluids. 4. Metabolic acidosis with elevated anion gap, low carbon dioxide secondary to #1 and lactic acidosis, now resolved with treatment of aggressive fluid management. 5. Elevated liver functions with noted fatty liver on diagnostic studies, likely nonalcoholic fatty liver with levels returning to baseline with treatment. 6. Severe dehydration secondary to #1, improving with fluids. 7. Hypertension with persistent tachycardia, likely secondary to #1, requiring initiation of beta donell and continued fluid management. 8. Elevated D-dimer, uncertain etiology, probably secondary to underlying pancreatitis with no evidence of respiratory compromise. 9. History of hypertension, poorly controlled and exacerbated by underlying pancreatitis and current stress state. PLAN: We will continue to follow the patient and treat fairly aggressively with continued fluid management. We will let her try some ice chips and monitor fluid I&Os closely with anticipation of removing the Parekh catheter either later today or tomorrow morning. We will continue to replace calcium as needed. I did talk to Dr. Lao. He recommended we start her on some Rocaltrol in the morning or later this afternoon for at least one week. Dosing will be 2.5 mcg. He notes that as her pancreatitis resolves, her calcium should normalize. We will anticipate hopefully being able to discharge either later tomorrow or once the patient is able to transition to oral diet and is tolerating nutritional status. We will continue to follow the patient along with Dr. Mendoza until she does transition to outpatient management. Until then, we will continue to monitor and treat as needed. [facility][id number] [facility]
[2018-12-12] MEDS ORDERED: CALCIUM GLUCONATE INJ 2 GM in SODIUM CHLORIDE 0.9% 100ML 100 ML IVPB ONE (09:12)
[2018-12-12] MEDS ORDERED: KCL 40MEQ/NS 1,000 ML IVS PRN (09:14)
[2018-12-12] MEDS ORDERED: CALCIUM GLUCONATE INJ 1 GM/10 ML VIAL ONE (10:25)
[2018-12-12] MEDS ORDERED: SODIUM CHLORIDE 0.9% 100ML 100 ML IVPB ONE (10:26)
[2018-12-12] MEDS: METOPROLOL TARTRATE 25 MG TAB PO SCH ×2 (10:38→17:06)
[2018-12-12] MEDS ORDERED: FUROSEMIDE INJ 40 MG/4 ML VIAL IV ONE (13:15)
[2018-12-12] MEDS ORDERED: POTASSIUM CHLORIDE 20 MEQ TAB PO ONE (13:16)
[2018-12-12] MEDS ORDERED: LOPERAMIDE CAP 2 MG CAP PO ONE (15:02)
--- NOTE | 2018-12-12 16:01 | RAD ---
EXAM DESCRIPTION: Chest,2 Views CLINICAL HISTORY: increase shortness of breath, acute pancreatitis COMPARISON: Abdominal radiograph dated December 11, 2018 CT abdomen and pelvis dated December 10, 2018 TECHNIQUE: PA and lateral views of the chest FINDINGS: Cardiomediastinal silhouette and pulmonary vascularity are within normal limits. Subtle increased opacity in the left lung base/left retrocardiac region most likely represent subsegmental atelectasis. Mild ill-defined left hemidiaphragm may represent trace left-sided pleural effusion. Minimal atelectasis is noted of the right lung base. There is no pneumothorax. No acute osseous abnormality. IMPRESSION: 1. Subtle increased opacity in the bilateral lung bases, left greater than right, most likely represent subsegmental atelectasis. Otherwise, lungs show no confluent infiltrates. 2. Mild ill-defined left hemidiaphragm may represent trace left-sided pleural effusion. Electronically signed by: Mohamud Luevano MD 12/12/2018 3:58 PM LABORATORY SAMPLE [employer]ER
--- NOTE | 2018-12-12 16:45 | PN ---
DATE: 12/12/18 SUPERVISING PHYSICIAN: Everett Loredo M.D. SUBJECTIVE: The patient continues to deny any pain. She responded well to Lasix but continues to have some shortness of breath when lying down. She did receive well over 7 liters of fluid during her initial fluid resuscitation efforts. Started her on beta donell in efforts to help with her blood pressure and rate control and she is tolerating this without any complications. We discussed at length her care plan of increasing her diet slowly and hope to be able to discharge tomorrow or Monday. OBJECTIVE: VITAL SIGNS: Temperature 97.9, pulse 115, blood pressure 117/87, respirations 18, showing 95% saturations at rest on room air. I's and O's show a positive balance of 3950 with 4575 in, 625 out. Weight is 78.5 kg. GENERAL: The patient is resting in bed comfortably. Appears to be in no acute distress. She is alert. CHEST: Lung sounds are clear to auscultation without any notable rhonchi, wheezing or rales. They are diminished towards the bases. HEART: Regular rate and rhythm showing tachycardia on the bedside monitor. ABDOMEN: Soft. No rebound tenderness. No peritoneal signs. EXTREMITIES: Without any clubbing, cyanosis or edema. NEUROLOGIC: She remains alert and oriented times three. LABORATORY: White count is 3,500, hemoglobin 11.4, hematocrit 32.7, platelet count at 95,000 which is improving from previous of 88,000. RBC indices indicate a microcytosis. Chemistries show a low sodium of 131, potassium 3.0, carbon dioxide 17, anion gap was normal. BUN 9, creatinine 0.49. Calcium 5, corrected for albumin of 2.4 corrected to about 6.28. Bilirubin is now down to 1.1, AST is down to 95, ALT and alkaline phosphatase remain within normal limits. Albumin 2.4. Amylase is down to 175, lipase is down to 198. MICROBIOLOGY: Urine culture is pending. Blood cultures remain negative. RADIOLOGY: Awaiting a chest film. ASSESSMENT: 1. Acute pancreatitis probably due to biliary sludge, being followed by Dr. Mendoza, showing improvement with aggressive management. 2. Severe abdominal pain as noted on #1, resolved with treatment. 3. Persistent electrolyte imbalance, secondary to ongoing pancreatitis, especially hypocalcemia requiring multiple parenteral replacement dosing with calcium, magnesium and ongoing fluids. 4. Metabolic acidosis with anion gap showing to be normal now with CO2 of 17. 5. Elevated liver functions secondary to #1, returning to baseline with treatment. 6. Severe dehydration due to #1, resolving with fluids. 7. Hypertension, poorly controlled, with persistent tachycardia exacerbated by #1, requiring initiation of a beta donell and further management. 8. Elevated D-dimer probably due to underlying pancreatitis with no respiratory compromise. PLAN: Will advance the patient's diet today to clear liquids. Go ahead and give her a dose of Lasix to help reestablish true volume status. Will continue to advance her diet as she tolerates. I have encouraged her to continue to ambulate. We have now saline locked her as she is controlling her own oral intake. With her shortness of breath and significant amount of fluid she has gotten in the last 48 hours, will go ahead and give her some Lasix and monitor I's and O's closely. We did start her on some Rocaltrol 0.25 mg daily. Will continue for a week. This was on suggestion by Dr. Lao in regards to treating her hypocalcemia that should resolve as she clinically improves. Will continue to follow the patient along with Dr. Mendoza and hope to be able to transition her to outpatient management later tomorrow, if not Monday. Until then will continue to monitor and treat as needed. #[id number] [facility]
[2018-12-12] MEDS: ENOXAPARIN SODIUM 40 MG/0.4 ML SYG SUBCU SCH (20:02)
[2018-12-13] MEDS ORDERED: SODIUM CHL 0.9% 50ML MIN-BAG+ 50 ML IVPB ONE (07:11)
[2018-12-13] MEDS ORDERED: cefTRIAXone SODIUM 1 GM VIAL ONE (07:11)
[2018-12-13] MEDS: cefTRIAXone SODIUM 1 GM in SODIUM CHL 0.9% 50ML MIN-BAG+ 50 ML IVPB SCH (07:21)
[2018-12-13] MEDS: METOPROLOL TARTRATE 25 MG TAB PO SCH ×2 (07:21→17:04)
[2018-12-13] MEDS: SODIUM CHLORIDE 0.9% (FLUSH) 10 ML SYG IV PRN (07:22)
[2018-12-13] MEDS ORDERED: POTASSIUM CHLORIDE 20 MEQ TAB PO ONE (07:36)
[2018-12-13] MEDS ORDERED: CALCIUM GLUCONATE INJ 2 GM in SODIUM CHLORIDE 0.9% 100ML 100 ML IVPB ONE (07:38)
[2018-12-13] MEDS ORDERED: CALCIUM GLUCONATE INJ 1 GM/10 ML VIAL ONE (07:48)
[2018-12-13] MEDS ORDERED: SODIUM CHLORIDE 0.9% 100ML 100 ML IVPB ONE (07:51)
[2018-12-13] MEDS: CALCITRIOL 0.25 MCG CAP PO SCH (08:59)
[2018-12-13] MEDS: BIFIDOBACTERIUM INFANTIS 4 MG CAP PO SCH (08:59)
[2018-12-13] MEDS: LISINOPRIL 10 MG TAB PO SCH (08:59)
[2018-12-13] MEDS ORDERED: CALCITRIOL 0.25 MCG CAP PO ONE (12:26)
[2018-12-13] MEDS: IV SET AND CAP CHANGE INJ INJ SCH (13:33)
--- NOTE | 2018-12-13 14:26 | RAD ---
EXAM DESCRIPTION: Chest,2 Views CLINICAL HISTORY: acute pancreatitis COMPARISON: Previous study July 12, 2019 TECHNIQUE: PA/lateral FINDINGS: Heart size is normal with normal pulmonary vascularity. No pleural effusion or pneumothorax. Left pleural effusion of [id number] size is seen with infiltrate or partial volume loss in the left lower lobe similar to previous study. Lateral view shows intact sternum and T-spine. IMPRESSION: Left pleural effusion with partial volume loss or infiltrate in the left lower lobe. Electronically signed by: Linwood Pierre MD 12/13/2018 2:23 PM PATIENT ATTENDANT
[2018-12-13] MEDS ORDERED: KETOROLAC TROMETHAMINE INJ 30 MG/ML VIAL IV ONE (15:00)
[2018-12-13] MEDS: ALPRAZolam 0.5 MG TAB PO PRN (15:27)
[2018-12-13] MEDS: hydroCHLOROthiazide 12.5 MG CAP PO SCH (15:27)
--- NOTE | 2018-12-13 18:55 | PN ---
DATE: 12/13/18 SUPERVISING PHYSICIAN: Everett Loredo M.D. SUBJECTIVE: The patient was doing good this morning and was set to discharge, however she started developing once again left upper quadrant pain that she associates with deep inspiratory effort. I discussed at length with her possible complications of the pancreatitis and that it would be in her best interest if we observed her another night and rechecked her enzymes in the morning, and possibly get a CT to further rule out any other complications. She is in agreement with that plan of care. She has been afebrile. I have stopped her antibiotics since her urine culture showed no growth. She has been ambulating. She reports no additional pain. No nausea or vomiting. OBJECTIVE: VITAL SIGNS: Temperature 98.4, pulse 83, blood pressure 150/96, respirations 18, satting 100% on room air. GENERAL: The patient appears to be comfortable in no acute distress, although with deep inspiratory effort she does show some obvious discomfort. She is alert. CHEST: Lung sounds are fairly clear throughout, just slightly diminished towards the left more so to the lateral aspect and posteriorly, but no wheezing or rhonchi. HEART: Regular rate and rhythm. ABDOMEN: Soft, distended slightly but negative to any pain on palpation or rebound tenderness. No palpable masses. BACK: Negative for CVA tenderness or vertebral tenderness on palpation. EXTREMITIES: Without any edema. NEUROLOGIC: She is alert and oriented times three. LABORATORY: White count 4,200, hemoglobin showing to be down to 10.8, hematocrit 31.6 with a macrocytic presentation and platelets 124,000. Differential shows now to be without a left shift. Chemistries show potassium 2.8, carbon dioxide 18, BUN 6, creatinine 0.6, serum osmolality 271, glucose 97, calcium is up slightly to 5.5 and corrected for an albumin of 2.4 to approximately 6.5. Magnesium was normal at 2.0. C reactive protein is showing elevation at 21.6 compared to admission. Troponin yesterday was negative being less than 0.02. Amylase is down to113 and lipase is near baseline levels at 88. MICROBIOLOGY: Final urine culture showed no growth after 2 days. Blood cultures remain negative after 3 days. RADIOLOGY: Repeat chest x-ray today 2 view chest shows left pleural effusion with partial volume loss or infiltrate in the left lower lobe. ASSESSMENT: 1. Acute pancreatitis, uncertain etiology, felt to be probably due to some biliary sludge that is being followed by Dr. Mendoza, with the patient showing improvement with aggressive fluid management. 2. Persistent electrolyte imbalance to include hypokalemia secondary to ongoing pancreatitis with a persistent hypocalcemia requiring multiple doses of parenteral replacement and started on Rocaltrol. 3. Metabolic acidosis on admission due to underlying pancreatitis, resolved after initiation of fluids. 4. Elevated liver functions initially secondary to #1 and slowly returning to baseline. 5. Severe dehydration due to #1, resolving with fluids. 6. Hypertension with persistent tachycardic rate exacerbated by #1 and requiring initiation of both beta donell and Hydrochlorothiazide along with the patient already having been on Matthew inhibitor in the form of lisinopril showing some improvement and will need further outpatient management. 7. Elevated D-dimer due to underlying pancreatitis with no respiratory compromise noted. PLAN: The patient's diet has been advanced to a low fat diet. She has been ambulating but does continue to complain of pain in her left rib cage with some deep inspiratory effort, but no pain on palpation. I have explained to her that we will watch her closely overnight and if she continues to show persistent pain and her enzymes in the form of amylase and lipase do not normalize, will consider getting an ultrasound or a CT of the abdomen and pelvis to further rule out any complications such as a pseudocyst. I have stopped her antibiotics and she has been started on Rocaltrol at 2 mcg daily which will continue for another 2 days. Will continue to follow her labs in the morning and certainly if needed replace her calcium until discharge, and hopefully be able to discharge Monday. But again, if she does show persistent pain after talking with Dr. Mendoza, will go ahead and get a CT of the abdomen to further rule out any complications. Until she can transition to outpatient management will continue to monitor and treat as needed. #[id number] [facility]
[2018-12-13] MEDS: ENOXAPARIN SODIUM 40 MG/0.4 ML SYG SUBCU SCH (20:05)
[2018-12-13] MEDS ORDERED: TEMAZEPAM 15 MG CAP PO PRN ×2 (20:10→20:15)
[2018-12-14 02:14] VITALS: O2SAT 98
[2018-12-14] MEDS: hydroCHLOROthiazide 12.5 MG CAP PO SCH (08:12)
[2018-12-14] MEDS: LISINOPRIL 10 MG TAB PO SCH (08:12)
[2018-12-14] MEDS: BIFIDOBACTERIUM INFANTIS 4 MG CAP PO SCH (08:12)
[2018-12-14] MEDS: SODIUM CHLORIDE 0.9% (FLUSH) 10 ML SYG IV PRN (08:12)
[2018-12-14] MEDS: METOPROLOL TARTRATE 25 MG TAB PO SCH ×2 (08:12→17:00)
[2018-12-14] MEDS ORDERED: CALCITRIOL 0.25 MCG CAP PO SCH (09:00)
[2018-12-14] MEDS ORDERED: POTASSIUM CHLORIDE INJ 40 MEQ 40 MEQ in SODIUM CHLORIDE 0.9% 250ML 250 ML IVPB ONE (09:03)
[2018-12-14] MEDS ORDERED: POTASSIUM CHLORIDE 20 MEQ TAB PO SCH (09:11)
[2018-12-14] MEDS ORDERED: SODIUM CHLORIDE 0.9% 250ML 250 ML ONE (09:47)
[2018-12-14] MEDS ORDERED: POTASSIUM CHLORIDE 40mEq 20ML VIAL ONE (09:47)
[2018-12-14 13:41] VITALS: BP 125/89; TEMP 98.7
--- NOTE | 2018-12-14 20:21 | DS ---
ADMISSION DIAGNOSIS: 1. Acute pancreatitis, uncertain etiology. 2. Severe abdominal pain secondary to #1 with concerns for developing duodenitis and early colitis, likely due to current pancreatitis, awaiting surgical consultation. 3. Severe electrolyte imbalance to include hypomagnesemia, hypocalcemia and hypokalemia due to current metabolic acidosis as noted with carbon dioxide of 18. 4. Metabolic acidosis with elevated anion gap, low carbon dioxide secondary to severe dehydration and lactic acidosis from acute pancreatitis. 5. Elevated liver functions with noted fatty liver on diagnostic studies including CT and ultrasound, uncertain etiology. 6. Severe dehydration secondary to acute pancreatitis with nausea and vomiting requiring aggressive fluid resuscitation. 7. Hypertension with tachycardia, probably due to underlying acute inflammatory response and augmented by acute stress response with the patient having acute pancreatitis. 8. Elevated D-dimer, uncertain etiology, probably secondary to underlying pancreatitis. 9. History of hypertension, poorly controlled and exacerbated by underlying pancreatitis and current stress response due to pain. HISTORY OF PRESENT ILLNESS: Ms. Chapman is a 43-year-old, female patient that presented to the Emergency Room today secondary to well over 24 hours of severe nausea, vomiting and associated abdominal pain. She associates the pain primarily to her umbilical region and it is worse with any movement, eating or direct palpation. She denies any significant history of trauma and has never had any past history of pancreatitis. She denies any significant alcohol usage. She does have a history of hypertension on lisinopril. She reports there is a strong family history of pancreatitis with her mother having episodes of pancreatitis, uncertain etiology, that she felt was related to cholelithiasis. She has had random nausea and vomiting since Monday. She reports she and her had eaten at a [employer] food restaurant the night before and both had started feeling a little bit ill with some nausea on Monday night. She notes she has been unable to hold any significant oral intake in the last 24 hours. Past surgical history is significant for total hysterectomy, three sections and previous appendectomy. Initial labs in the Emergency Room, showed she had elevated amylase and lipase with lipase 1819. She was showing significantly elevated anion gap indicating moderate metabolic acidosis as well as it was noted she had an elevated lactic acid of 12.1. Calcium was low at 7.2. Magnesium low at 1.1. Liver enzymes were showing elevation with total bilirubin 2.3, AST 207 and ALT 134, alkaline phosphatase was normal. Urinalysis shows 48 ketones, small amount of blood, bilirubin and 100 protein. Otherwise, microscopic was within normal limits. Her initial radiographic workup included a CT of the abdomen and pelvis that was significant for findings concerning for pancreatitis with a moderate amount of perinephric fluid, stranding without any discrete fluid collections. There was also note of thickening and surrounding stranding of the duodenum and transverse colon, all suspicious for adjacent pancreatitis. She was also noted to have enlarged and fatty liver. She then had an abdominal ultrasound and per radiologic interpretation there was again note of a fatty liver, but not enlarged, vascularity unremarkable and normal intrahepatic and extrahepatic ducts. No ascites. Gallbladder and pancreas were negative, but pancreatic ducts were not seen. The common bile duct was noted to be within normal limits at 2.7 mm with no wall thickening or fluid around the gallbladder as well as no intraluminal stones or sludge. She was given IV fluids, pain medicine and antiemetics in the Emergency Room for treatment of acute pancreatitis and is now going to be admitted for further treatment and evaluation. The patient was admitted in stable condition. HOSPITAL COURSE: The patient was initially admitted with acute pancreatitis, started on pain control while NPO. Her labs and clinical status were monitored over several days, with slow improvement overall. She was set to discharge yesterday, 12-13-18, but developed upper quadrant pain again concerning for recurrence of pancreatitis. Her labs did not reflect this and she remained 1 more night. Throughout the stay, it was decided that she likely had pancreatitis that was induced by an unknown source, possibly her gallbladder though. Over several days with discussion with Dr. Mendoza, it was decided that she would likely need an outpatient cholecystectomy. VITALS: Temperature 98.7, pulse 83, blood pressure 125/89, respiratory rate 16, oxygen 98% on room air. LABORATORY: White blood cell count remained normal throughout the stay. Hemoglobin 10.8, hematocrit 31.6. MCV elevated at 105. Sodium 135, potassium 2.7, increased from 2.3, calcium 5.6, but increasing. Amylase 97, lipase 70, both have decreased steadily over 3 days. Abdominal x-ray 12-11-18 is negative for any findings. Abdomen and pelvis CT on 12-11-18 with evidence of pancreatitis with nonspecific changes throughout the abdomen that is seen with pancreatitis. Abdominal ultrasound 12-10-18 shows a fatty liver that is not enlarged with a normal gallbladder. DISCHARGE DIAGNOSES: 1. Acute pancreatitis, uncertain etiology, likely due to biliary sludge that was endorsed by Dr. Mendoza. 2. Hypokalemia, improving alongside improving pancreatitis. 3. Hypocalcemia, which is improving with replacement and diet, improving with pancreatitis. 4. Metabolic acidosis on admission due to pancreatitis, resolved during ambulation. 5. Elevated liver function tests likely secondary to problem #1, normalized. 6. Severe dehydration due to problem #1, resolved. 7. Chronic hypertension on single medicine at home, controlled with addition of beta donell. PLAN: Given her progression and improvement in clinical status as well as lab work, we have decided to be able to send her home with outpatient management with Dr. Mendoza. She has an appointment scheduled on December 24 to discuss when to possibly have a cholecystectomy. Her lab work has been trending the right way, and this is in light of replacement as well as improving in diet. With medicinal replacement, as well as diet at home, these will continue to improve. Encouraged to continue the low fat diet, and take all of her medications as prescribed. Encouraged to followup with her primary care physician in regarding to further management of her chronic condition. #[id number] [facility]
== END 2018-12-14 16:35 | disposition home or self-care (01) | DRG 439 ==
LOC: ER 07:56 → MS 12:24
PROVIDERS: ADMIT Nurse Practitioner Family; ATTEND Nurse Practitioner Family
PROC: BW211ZZ Computerized Tomography (CT Scan) of Abdomen and Pelvis using Low Osmolar Contrast (ICD-10-PCS; principal; 2018-12-10)
DX: K85.90 Acute pancreatitis without necrosis or infection, unspecified (principal); E87.2 Acidosis; E87.6 Hypokalemia; E86.1 Hypovolemia; I10 Essential (primary) hypertension; E83.42 Hypomagnesemia; E83.51 Hypocalcemia; E86.0 Dehydration; R79.89 Other specified abnormal findings of blood chemistry; K29.80 Duodenitis without bleeding; K52.9 Noninfective gastroenteritis and colitis, unspecified; K76.0 Fatty (change of) liver, not elsewhere classified; R33.9 Retention of urine, unspecified; R73.03 Prediabetes; Z79.899 Other long term (current) drug therapy

== ENCOUNTER → 2019-09-17 | Outpatient (CLI) | payer BC ==
--- NOTE | 2019-09-19 20:26 | MAM ---
EXAM DESCRIPTION: 3D Screening BILATERAL : Digital Mammography. CLINICAL HISTORY: 44 years Female SCREEN . No complaints. No personal history of breast cancer. Remote family history of breast cancer. Menarche age 15. Childbirth age 30. Hysterectomy unknown age. No HRT. Lifetime risk of developing breast cancer (Tyrer-Cuzick model)(%): 10.9. COMPARISON: Bilateral screening digital breast tomosynthesis 21 August 2017. Diagnostic bilateral breast tomosynthesis August.. No prior reports available. TECHNIQUE: Bilateral CC and MLO projection full-field images, digital tomosynthesis mammographic technique. Bilateral digital 2-D full-field MLO images. CAD not available for tomosynthesis or 2-D images. FINDINGS: The breast parenchymal density pattern is: Heterogeneously dense breast tissue, which may obscure small masses. No skin thickening or nipple retraction. Bilateral solitary microcalcifications. Stable architectural distortion in the superior middle third left breast. Right axillary lymph nodes. Stable mass density inferior anterior right breast. No new focal, stellate mass or density, focal asymmetry , and no suspicious microcalcifications bilaterally. Stable mammograms compared to prior study. IMPRESSION: Benign exam. BIRAD CATEGORY: 2 BENIGN FINDINGS. RECOMMENDATIONS: FOLLOW UP: Routine digital bilateral mammographic screening, one year interval from September 2019. Written communication explaining the IMPRESSION and follow-up, will be mailed to the patient and referring health care provider. According to the [employer], yearly mammograms are recommended starting at age 40 and continuing as long as a woman is in good health. Any breast change noted on a breast self-exam should be reported promptly to the patient's healthcare provider. Breast MRI is recommended for women with an approximately 20-25% or greater lifetime risk of breast cancer, including women with a strong family history of breast or ovarian cancer and women who have been treated for Hodgkin's disease. A negative mammographic report should not delay tissue diagnosis in patients with significant clinical history or physical findings. Extremely dense breast tissue limits the sensitivity of digital mammography. Electronically signed by: Conrado Vega MD 09/19/2019 8:25 PM [facility]
== END ==
LOC: MAMMO 13:00
PROVIDERS: ATTEND Obstetrics & Gynecology
DX: Z12.31 Encounter for screening mammogram for malignant neoplasm of breast (principal)

== ENCOUNTER 2019-11-15 10:11 | Inpatient (IN) | payer BC, SELFPAY ==
[2019-11-15] MEDS ORDERED: SODIUM CHLORIDE 0.9% 1000ML 1,000 ML IVS ONE ×2 (10:39→12:19)
[2019-11-15] MEDS ORDERED: PROMETHAZINE HCL INJ 25 MG in SODIUM CHLORIDE 0.9% 50ML 50 ML IVPB ONE (10:39)
[2019-11-15] MEDS ORDERED: ONDANSETRON ODT 8 MG TAB SL ONE (10:39)
[2019-11-15] MEDS ORDERED: PROMETHAZINE HCL INJ 25 MG/ML VIAL ONE ×3 (10:48→21:42)
[2019-11-15] MEDS ORDERED: SODIUM CHLORIDE 0.9% 50ML 50 ML ONE ×3 (10:48→21:42)
--- NOTE | 2019-11-15 11:12 | RAD ---
EXAM DESCRIPTION: Abdomen Series CLINICAL HISTORY: 44 years Female, nv 6 hrs, hx pancreatitis 1 yr ago COMPARISON: December 11, 2018 FINDINGS: Single view of the chest demonstrates normal heart and vascularity and clear lung purdy without evidence of free abdominal air. The aorta is tortuous. Two views of the abdomen demonstrate normal bowel gas pattern. No upper abdominal calcifications to suggest chronic pancreatitis noted. Gas-filled transverse colon and moderate air bubble in the gastric fundus is nonspecific. No significant ileus noted. One loop of mildly dilated small bowel in the mid abdomen may represent changes of a mild ileus. IMPRESSION: Essentially negative abdominal series without evidence of obstruction or free abdominal air with questionable minimal ileus in the central abdomen to the right of midline. Electronically signed by: Everett Lazaro MD 11/15/2019 11:11 AM [facility]
[2019-11-15] MEDS ORDERED: MORPHINE SULFATE INJ 10 MG/ML VIAL IV ONE ×2 (11:52→13:32)
--- NOTE | 2019-11-15 13:49 | US ---
EXAM DESCRIPTION: Abdomen,Limited: ULTRASOUND. CLINICAL HISTORY: eval ruq and pancreas COMPARISON: Abdominal radiographs on this visit. TECHNIQUE: Transabdominal scanning: monson-scale mode. Doppler mode. FINDINGS: Gallbladder: normal size, shape, echogenicity; no intraluminal stones or sludge. No fluid around the gallbladder. No wall thickening. 2.7 mm. Non-tender with transducer pressure. Common bile duct: caliber 4.9 mm within normal limits. Liver: Increased heterogeneous echogenicity; contour liver capsule smooth where seen. No fluid around the liver. Intrahepatic biliary ducts normal caliber. Doppler hepatopedal flow and normal caliber portal vein.. Long axis right lobe 13.2 cm. Pancreas: Appears minimally thickened and heterogeneous in echotexture but no definite cysts. Duct not seen. Proximal abdominal aorta: 1.9 cm normal caliber.. IVC: visualized and normal caliber. Right kidney: long axis measures 10.3 cm. Normal cortical Echogenicity. Cortical thickness 11 mm. No echogenic stones or hydronephrosis. IMPRESSION: 1. Minimal steatosis of the liver with normal size and vascularity. Ducts not dilated. Smooth capsule with no ascites. 2. Gallbladder and common bile duct unremarkable. Pancreas appears thickened and heterogeneous but no cysts. Possible edema could represent pancreatitis. Duct not seen. 3. Right kidney with minimally thin cortex but otherwise negative. Normal caliber of the proximal abdominal aorta and IVC. Electronically signed by: Conrado Vega MD 11/15/2019 1:48 PM [facility]
--- NOTE | 2019-11-15 14:03 | ED.PDOC ---
History of Present Illness - General Chief Complaint: Abdominal Pain Stated Complaint: Abdominal discomfort Time Seen by Provider: 11/15/19 10:13 Source: patient Exam Limitations: no limitations - History of Present Illness Initial Comments: The patient is a 44-year-old female presented emergency room with central abdomen and epigastric pain that started this morning around 5 AM followed quickly by nausea and vomiting which has persisted to her arrival here. The patient denies any abdominal surgeries. She did have pancreatitis about 10 months ago but no definitive source was found at that time. She is not a heavy alcohol drinker. No history of extremely high triglycerides. No known medication source. No trauma. The patient is pleasant and cooperative. She is in obvious discomfort. Timing/Duration: 4-6 hours Severity: severe Improving Factors: nothing Worsening Factors: eating Associated Symptoms: loss of appetite, malaise, nausea/vomiting Allergies/Adverse Reactions: Allergies NO KNOWN ALLERGY Allergy (Verified 12/10/18 08:10) Home Medications: Ambulatory Orders ALPRAZolam [Xanax] 0.5 mg PO PRN 12/10/18 Lisinopril 10 mg PO DAILY 12/10/18 Calcitriol [Rocaltrol] 2 mcg PO DAILY #2 cap 12/14/18 Metoprolol Tartrate [Lopressor] 25 mg PO BIDFD #60 tab 12/14/18 Potassium Chloride Tab [K-Dur] 20 meq PO DAILYBK #2 tab 12/14/18 Review of Systems - Review of Systems Constitutional: States: malaise EENTM: States: no symptoms reported Respiratory: States: no symptoms reported Cardiology: States: no symptoms reported Gastrointestinal/Abdominal: States: abdominal pain, nausea, vomiting Genitourinary: States: no symptoms reported Musculoskeletal: States: no symptoms reported Skin: States: no symptoms reported Neurological: States: no symptoms reported Endocrine: States: no symptoms reported All other Systems: No Change from Baseline Past Medical History (General) - Patient Medical History Hx Seizures: No Hx Stroke: No Hx Dementia: No Hx Asthma: No Hx of COPD: No Hx Cardiac Disorders: No Hx Congestive Heart Failure: No Hx Pacemaker: No Hx Hypertension: Yes Hx Thyroid Disease: No Hx Diabetes: No Hx Gastroesophageal Reflux: No Hx Renal Disease: No Hx Cancer: No Hx of HIV: No Hx Hepatitis C: No Hx MRSA: No Surgical History: appendectomy, other - Vaccination History Hx Tetanus, Diphtheria Vaccination: Yes Hx Influenza Vaccination: Yes - 2019 Hx Pneumococcal Vaccination: No - Social History Hx Tobacco Use: Yes - Quit 1999 Hx Chewing Tobacco Use: No Hx Alcohol Use: No Hx Substance Use: No Hx Substance Use Treatment: No Hx Depression: No Hx Physical Abuse: No Hx Emotional Abuse: No Hx Suspected Abuse: No - Female History Patient is a Female of Child Bearing Age (10 -59 yrs old): No Patient : No Family Medical History - Family History Mother Family History: Unknown Living Status: Unknown Physical Exam - Physical Exam General Appearance: Alert, Comfortable, No apparent distress Eye Exam: bilateral normal Ears, Nose, Throat: hearing grossly normal, normal ENT inspection Neck: full range of motion, supple Respiratory: lungs clear, normal breath sounds, no respiratory distress, no accessory muscle use Cardiovascular/Chest: normal peripheral pulses, regular rate, rhythm, no edema Peripheral Pulses: radial,right: 2+, radial,left: 2+ Gastrointestinal/Abdominal: soft, other - Periumbilical to epigastric tenderness to palpation. Rectal Exam: deferred Back Exam: no CVA tenderness Extremity: non-tender, normal inspection, no pedal edema, normal capillary refill Neurologic: trimming cutter machine II-XII nml as tested, alert, normal mood/affect, oriented x 3 Skin Exam: normal color Comments: Vital Signs - 24 hr 11/15/19 11/15/19 11/15/19 10:15 11:15 12:00 Temperature 98.0 F 98.9 F Pulse Rate [ 85 83 85 Left Radial] Respiratory 20 20 20 Rate Blood Pressure 175/121 169/126 166/115 [Left Arm] O2 Sat by Pulse 100 99 100 Oximetry 11/15/19 13:00 Temperature Pulse Rate [ 84 Left Radial] Respiratory 20 Rate Blood Pressure 177/114 [Left Arm] O2 Sat by Pulse 98 Oximetry Progress - Progress Progress: 11/15/19 14:04 The patient is a 44-year-old female presented to emergency room with what appears to be recurrent acute pancreatitis. Source is still idiopathic. She has received a liter of IV fluids and is on 250 cc/h normal saline currently. She has received morphine as well as nausea medications. No antibiotics at this time. The patient is being admitted for pain and nausea control as well as IV hydration to allow for bowel rest. Continue to monitor. Expected length of stay is 3 to 4 days. jeff el [id number] - Results/Orders Results/Orders: Laboratory Tests 11/15/19 11/15/19 11/15/19 10:43 10:43 10:43 WBC 9.6 RBC 4.59 Hgb 15.6 Hct 44.4 MCV 96.8 MCH 34.1 H MCHC 35.2 RDW 13.0 Plt Count 270 MPV 7.3 L Absolute Neuts (auto) 8.50 H Absolute Lymphs (auto) 0.60 L Absolute Monos (auto) 0.40 Absolute Eos (auto) 0.00 Absolute Basos (auto) 0.00 Neutrophils % 89.3 H Lymphocytes % 6.1 L Monocytes % 4.2 Eosinophils % 0.0 L Basophils % 0.4 PT 10.4 INR 1.05 PTT (SP) 20.8 L Sodium 138 Potassium 4.0 Chloride 98 L Carbon Dioxide 26 Anion Gap 18.0 BUN 19 H Creatinine 0.94 BUN/Creatinine Ratio 20.2 H Random Glucose 172 H Serum Osmolality 282.0 Lactic Acid Calcium 10.0 Magnesium 2.1 Total Bilirubin 1.8 H AST 51 H ALT 37 Alkaline Phosphatase 73 Creatine Kinase 81 CK-MB (CK-2) 1.3 CK-MB (CK-2) % Not Reportable Troponin I < 0.02 B-Natriuretic Peptide 13.4 Serum Total Protein 8.6 H Albumin 5.2 Globulin 3.4 Albumin/Globulin Ratio 1.5 Triglycerides Cholesterol Cholesterol Risk Factr LDL Cholesterol Direct HDL Cholesterol Amylase 607 H* Lipase 1038 H TSH 3.17 Serum HCG, Qual 11/15/19 11/15/19 11/15/19 10:43 10:43 10:43 WBC RBC Hgb Hct MCV MCH MCHC RDW Plt Count MPV Absolute Neuts (auto) Absolute Lymphs (auto) Absolute Monos (auto) Absolute Eos (auto) Absolute Basos (auto) Neutrophils % Lymphocytes % Monocytes % Eosinophils % Basophils % PT INR PTT (SP) Sodium Potassium Chloride Carbon Dioxide Anion Gap BUN Creatinine BUN/Creatinine Ratio Random Glucose Serum Osmolality Lactic Acid 1.3 Calcium Magnesium Total Bilirubin AST ALT Alkaline Phosphatase Creatine Kinase CK-MB (CK-2) CK-MB (CK-2) % Troponin I B-Natriuretic Peptide Serum Total Protein Albumin Globulin Albumin/Globulin Ratio Triglycerides 342 H Cholesterol 195 Cholesterol Risk Factr 3.2 L LDL Cholesterol Direct 88.6 HDL Cholesterol 61 Amylase Lipase TSH Serum HCG, Qual Negative Acute abdominal series shows mildly dilated loops of small bowel. Abdominal ultrasound shows no obvious gallbladder pathology. No obvious acute definitive pancreatic changes. Small area possibly consistent with pancreatitis. No cyst formation. Pancreatic duct not seen. See report for details. Departure - Departure Clinical Impression: Pancreatitis Qualifiers: Chronicity: acute Pancreatitis type: idiopathic Acute pancreatitis complication: no infection or necrosis Qualified Code(s): K85.00 - Idiopathic acute pancreatitis without necrosis or infection Disposition: Admit Patient Departure Forms: ED Discharge - Pt. Copy, Patient Portal Self Enrollment Referrals: SOPHIA ESTRELLA IV, [employer] MANAGER [Primary Care Provider] - 1-2 Weeks Home Medications: Ambulatory Orders ALPRAZolam [Xanax] 0.5 mg PO PRN 12/10/18 Lisinopril 10 mg PO DAILY 12/10/18 Calcitriol [Rocaltrol] 2 mcg PO DAILY #2 cap 12/14/18 Metoprolol Tartrate [Lopressor] 25 mg PO BIDFD #60 tab 12/14/18 Potassium Chloride Tab [K-Dur] 20 meq PO DAILYBK #2 tab 12/14/18 Decision To Admit - Decistion To Admit Decision to Admit Reason: Medical Nature Decision to Admit Date: 11/15/19 Decision to Admit Time: 14:05
--- NOTE | 2019-11-15 14:32 | HP ---
SUPERVISING PHYSICIAN: Mike De La Cruz MD HISTORY OF PRESENT ILLNESS: This is a 44-year-old female patient who has had some abdominal pain for a couple of days. She also had some nausea and vomiting over the last few days. At 5 AM on the morning admission, she woke up with severe epigastric and right upper and left upper quadrant abdominal pain. It was fairly intense and she came to the Emergency Room. In the ER, her initial vital signs were temperature 98, heart rate 85, blood pressure 175/121, respiratory rate 20, O2 saturation 90% on room air. Lab studies were done. CBC was unremarkable except she did have a left shift on her differential. Chemistries showed sodium 138, potassium 4, chloride 98, carbon dioxide 26, BUN 19, creatinine 0.94, glucose 172, serum osmolality 282, lactic acid 1.3, calcium 10, magnesium 2.1, total bilirubin 1.8, AST 51. The remainder of her liver enzymes were within normal limits. Serum total protein was high at 8.6. Amylase was 607, lipase 1038. TSH was 317. HCG was negative. Triglycerides were 342, cholesterol 195, LDL was 88.6 and HDL was 61. Urinalysis showed trace of intact blood, small amount of bilirubin and 3 to 5 urine RBCs. Her influenza type A and B per PCR were both negative. Abdominal x-ray showed essentially negative abdominal series without evidence of obstruction or free abdominal air with questionable minimal ileus in the central abdomen to the right of midline. Her abdominal ultrasound showed 1) Minimal steatosis of the liver with normal size and vascularity, ducts not dilated, smooth capsule with no ascites. 2) Gallbladder and common bile duct unremarkable. Pancreas appeared thickened and heterogeneous, but no cysts. Possible edema. Could represent pancreatitis. Duct not seen. 3) Right kidney with minimally thin cortex, but otherwise negative. Normal caliber of the proximal abdominal aorta and IVC. I was called for hospital admission for pancreatitis. She has had a history of pancreatitis approximately a year ago. At that time, her electrolytes were severely out of balance and she was very sick. She said she came in earlier this time because she figured it was pancreatitis again. Her mother did have pancreatitis after chemotherapy. She was admitted to the Floor and I did an abdominal CAT scan and it showed 1) Inflammatory changes observed throughout the entirety of the pancreas and diffuse pancreatic swelling is observed consistent with pancreatitis. The changes are more prominent than seen on the previous exam. 2) A small amount of fluid is observed in the anterior pararenal space. There is also a small amount of free fluid observed in the pelvis. No drainable abscess is detected. PAST MEDICAL HISTORY: 1. Hypertension. 2. Pancreatitis. PAST SURGICAL HISTORY: 1. section times 3. 2. Total hysterectomy. 3. Appendectomy. CURRENT MEDICATIONS: 1. Lisinopril. 2. Clonazepam. 3. Nexium. 4. Metoprolol tartrate. ALLERGIES: NO KNOWN DRUG ALLERGIES. FAMILY HISTORY: Positive for pancreatitis secondary to cholelithiasis. SOCIAL HISTORY: She is a real estate branch manager. She is . She has three children. Five years ago, she drank alcohol socially. She has not drank any alcoholic beverages in over five years. She does not use tobacco or illicit drugs. REVIEW OF SYSTEMS: GENERAL: Positive for general malaise, weakness. Negative for fever or weight changes. HEENT: Negative for sinus symptoms, ear pain, vision changes or sore throat. RESPIRATORY: Negative for wheezing, coughing or shortness of breath. CARDIAC: Negative for chest pain, palpitations or tachycardia. GASTROINTESTINAL: See history of present illness. GENITOURINARY: Negative for hematuria, dysuria or polyuria. SKIN: Negative for lesions or rashes. NEUROLOGIC: Negative for headache, dizziness or seizures. PHYSICAL EXAMINATION: VITAL SIGNS: Temperature 98.7. Heart rate 78. Blood pressure 171/24. Respiratory rate 81. O2 saturation 98% on room air. GENERAL: This is a 44-year-old female patient lying in her hospital bed. She looks to be in mild pain. HEENT: Normocephalic, atraumatic. Pupils are equal and reactive. Oropharynx is clear. NECK: Supple without mass. RESPIRATORY: Essentially clear to auscultation bilaterally. CHEST: There is equal rise and fall of the chest with inspiration and expiration. CARDIOVASCULAR: Regular rate and rhythm. GASTROINTESTINAL: The patient is very tender to palpation in the epigastric and left upper quadrant of the abdomen. She had some guarding. There is no rebound tenderness. Bowel sounds are positive. RECTAL: Deferred. BACK: Deferred. EXTREMITIES: No cyanosis, clubbing or edema. Bilateral pedal pulses are palpable at +2. NEUROLOGIC: Awake, alert and oriented times three. Cranial nerves II-XII are grossly intact. SKIN: Warm and dry. LABORATORY: Labs and films are as per history of present illness. IMPRESSION: 1. Acute pancreatitis of uncertain etiology. 2. Severe abdominal pain secondary to #1. We are awaiting consultation from Dr. Roberts. She had previously been seen by Dr. Mendoza at her last admission. 3. Hypertensive crisis with a history of hypertension. 4. Hypertension on a beta donell and BRICE inhibitor. 5. Elevated bilirubin. 6. Elevated AST. Her other liver enzymes are within normal limits. PLAN: We will keep the patient NPO and give her pain medications. She was getting morphine in the Emergency Room and she says it makes her feel flush. We will change that to Dilaudid. She also has some Toradol scheduled q.6h. and I have put a limit of 5 doses. She is on Lovenox for DVT prophylaxis and proton pump inhibitor for ulcer prophylaxis. She also has primary IV fluids. Since she is unable to take her oral medications, I have given her scheduled Lopressor and I have also given clonidine sublingual in case her pressure are too elevated. Dr. Roberts will see her tomorrow. She has antiemetics on board. Hopefully, Dr. Roberts can assist with finding the etiology of her pancreatitis. We will continue to monitor the patient closely and follow as needed. [facility][id number] [facility]
[2019-11-15] MEDS ORDERED: SODIUM CHLORIDE 0.9% (FLUSH) 10 ML SYG IV PRN (15:47)
[2019-11-15] MEDS ORDERED: MORPHINE SULFATE INJ 10 MG/ML VIAL IV PRN (15:47)
[2019-11-15] MEDS ORDERED: ONDANSETRON INJ 4 MG/2 ML VIAL IV PRN (15:47)
[2019-11-15] MEDS ORDERED: IV SET AND CAP CHANGE INJ INJ SCH (16:00)
[2019-11-15] MEDS ORDERED: KETOROLAC TROMETHAMINE INJ 30 MG/ML VIAL IV ONE (16:22)
[2019-11-15] MEDS ORDERED: PROMETHAZINE HCL INJ 25 MG in SODIUM CHLORIDE 0.9% 50ML 50 ML IVPB PRN ×4 (16:23)
--- NOTE | 2019-11-15 16:23 | CT ---
EXAM DESCRIPTION: Abdomen/Pelvis w/wo Contrast CLINICAL HISTORY: 44 years Female, pancreatitis COMPARISON: 10 December 2018 TECHNIQUE: Transaxial images were obtained without and with intravenous contrast media and without oral contrast media. Sagittal and coronal reconstruction was performed.This exam was performed according to our departmental dose-optimization program, which includes automated exposure control, adjustment of the mA and/or kV according to patient size and/or use of iterative reconstruction technique. FINDINGS: A tiny granulomas observed in the right lung base. The lung bases are otherwise clear. The liver and spleen are unremarkable. No biliary ductal dilatation is observed. The gallbladder is normal in appearance. Inflammatory changes are observed about the entirety of the pancreas consistent with a clinical diagnosis of pancreatitis. Fluid is observed in the anterior pararenal space particularly on the right. Imaging of the kidneys reveals no evidence of hydronephrosis mass cyst or calcification. The appendix is been previously removed. Surgical clips are seen in the right lower quadrant. A small amount of free fluid is observed in the pelvis. No inguinal region abnormality is seen. The patient is post hysterectomy. IMPRESSION: 1. Inflammatory changes are observed throughout the entirety of the pancreas and diffuse pancreatic swelling is observed consistent with pancreatitis. The changes are more pronounced than seen on the previous exam. 2. A small amount of fluid is observed in the anterior pararenal space. There is also small amount of free fluid is observed in the pelvis. No drainable abscess is detected. Electronically signed by: Mohamud Hoff MD 11/15/2019 4:22 PM [employer]
[2019-11-15] MEDS: DEX 5% W/NACL 0.9% 1000ML 1,000 ML IVS PRN (17:34)
[2019-11-15] MEDS ORDERED: KETOROLAC TROMETHAMINE INJ 30 MG/ML VIAL ONE (19:20)
[2019-11-15] MEDS: ENOXAPARIN SODIUM 40 MG/0.4 ML SYG SUBCU SCH (20:34)
[2019-11-15] MEDS: SODIUM CHLORIDE 0.9% (FLUSH) 10 ML SYG IV SCH (20:35)
[2019-11-15] MEDS ORDERED: HYDROmorphone HCL INJ 2 MG/ML VIAL IV PRN (21:33)
[2019-11-15] MEDS ORDERED: cloNIDine HCL 0.1 MG TAB SL PRN (21:33)
[2019-11-15] MEDS: KETOROLAC TROMETHAMINE INJ 30 MG/ML VIAL IV SCH (21:34)
[2019-11-15] MEDS: METOPROLOL TARTRATE INJ 5 MG/5 ML VIAL IV SCH (21:44)
[2019-11-16] MEDS: DEX 5% W/NACL 0.9% 1000ML 1,000 ML IVS PRN ×3 (02:33→18:57)
[2019-11-16] MEDS: KETOROLAC TROMETHAMINE INJ 30 MG/ML VIAL IV SCH ×4 (03:44→22:14)
[2019-11-16] MEDS: METOPROLOL TARTRATE INJ 5 MG/5 ML VIAL IV SCH ×3 (03:44→16:06)
[2019-11-16] MEDS: SODIUM CHLORIDE 0.9% (FLUSH) 10 ML SYG IV SCH ×2 (10:27→20:57)
[2019-11-16] MEDS ORDERED: LOPERAMIDE CAP 2 MG CAP PO ONE (15:13)
--- NOTE | 2019-11-16 17:44 | PN ---
DATE: -11/16/2019 SUPERVISING PHYSICIAN: Mike De La Cruz MD SUBJECTIVE: The patient seems to be doing better today. She has not had any nausea and notes her pain is a little bit better controlled today. She said it is at a maximum of 4 to 6 when she is ambulating an is down to about a 1 when she is resting. She has tried a clear liquid diet and so far has done well. She denies any shortness of breath, nausea or vomiting. OBJECTIVE: VITAL SIGNS: T-max 98.4, pulse 74, blood pressure 135/76, respirations 16, oxygen saturation 95% on room air. GENERAL: Patient is resting comfortably, appears to be in no acute distress. She is alert. CHEST: Clear to auscultation. HEART: Regular rate and rhythm. ABDOMEN: Soft with some tenderness over the epigastric left upper quadrant. No rebound tenderness, no point tenderness or peritoneal signs. Bowel sounds are positive. EXTREMITIES: Without edema. NEUROLOGIC: Alert and oriented x 3. LABORATORY: CBC shows white count 6,400, hemoglobin 12.2, hematocrit 34.5, platelet count 146,000. Differential does continue to show a left shift. Chemistries show mildly low potassium at 31 with sodium 137, magnesium low at 1.7. BUN 17, creatinine 0.63. Liver functions within normal limits. Amylase down to 410, lipase down to 564. ASSESSMENT: 1. Acute pancreatitis, etiology uncertain. 2. Abdominal pain secondary to #[address] Roberts, general surgeon. 3. Hypertensive crisis with good control on beta donell and BRICE inhibitor. 4. Elevated bilirubin now at normal levels possibly due to dehydration. 6. Elevated AST now at normal levels. PLAN: She has been started on a clear liquid diet at the request of Dr. Roberts. We will continue with IV fluids. She is on pain management with Dilaudid. She notes that Toradol did help a significant amount so we will continue with Toradol as needed. She is on DVT prophylaxis as well as protein pump inhibitor for ulcer prophylaxis. Will start her oral medications back today once she has demonstrated she is tolerating oral intake. She is on antiemetics as needed. We will continue to follow the patient along with Dr. Roberts until we can transition her to outpatient management. #[id number] [facility]
[2019-11-16] MEDS ORDERED: TEMAZEPAM 15 MG CAP PO PRN (18:02)
[2019-11-16] MEDS: ENOXAPARIN SODIUM 40 MG/0.4 ML SYG SUBCU SCH (20:57)
[2019-11-16] MEDS ORDERED: METOPROLOL TARTRATE 25 MG TAB PO SCH (21:00)
[2019-11-16] MEDS ORDERED: LISINOPRIL 10 MG TAB PO SCH (21:00)
[2019-11-17] MEDS: DEX 5% W/NACL 0.9% 1000ML 1,000 ML IVS PRN (02:51)
[2019-11-17 05:50] VITALS: O2SAT 100
[2019-11-17] MEDS: SODIUM CHLORIDE 0.9% (FLUSH) 10 ML SYG IV SCH (10:05)
[2019-11-17] MEDS ORDERED: SODIUM CHLORIDE 0.9% (FLUSH) 10 ML SYG IV ONE (10:57)
[2019-11-17] MEDS ORDERED: KETOROLAC TROMETHAMINE INJ 60 MG/2 ML VIAL IM ONE (14:40)
[2019-11-17 15:12] VITALS: BP 150/90; TEMP 97.6
--- NOTE | 2019-11-19 15:34 | DS ---
SUPERVISING PHYSICIAN: Everett Loredo MD ADMISSION DIAGNOSIS: 1. Acute pancreatitis of uncertain etiology. 2. Severe abdominal pain secondary to #1. We are awaiting consultation from Dr. Roberts. She had previously been seen by Dr. Mendoza at her last admission. 3. Hypertensive crisis with a history of hypertension. 4. Hypertension on a beta donell and BRICE inhibitor. 5. Elevated bilirubin. 6. Elevated AST. Her other liver enzymes are within normal limits. DISCHARGE DIAGNOSIS: 1. Acute pancreatitis, etiology uncertain, with the patient's symptoms resolving, tolerating an oral diet and not having any addl pain. 2. Abdominal pain secondary to #1. 3. Hypertensive crisis with good control on beta donell and BRICE inhibitor. 4. Elevated bilirubin now at normal levels possibly due to dehydration. 6. Elevated AST now at normal levels. REASON FOR HOSPITALIZATION: This is a 44-year-old female patient who has had some abdominal pain for a couple of days. She also had some nausea and vomiting over the last few days. At 5 AM on the morning admission, she woke up with severe epigastric and right upper and left upper quadrant abdominal pain. It was fairly intense and she came to the Emergency Room. In the ER, her initial vital signs were temperature 98, heart rate 85, blood pressure 175/121, respiratory rate 20, O2 saturation 90% on room air. Lab studies were done. CBC was unremarkable except she did have a left shift on her differential. Chemistries showed sodium 138, potassium 4, chloride 98, carbon dioxide 26, BUN 19, creatinine 0.94, glucose 172, serum osmolality 282, lactic acid 1.3, calcium 10, magnesium 2.1, total bilirubin 1.8, AST 51. The remainder of her liver enzymes were within normal limits. Serum total protein was high at 8.6. Amylase was 607, lipase 1038. TSH was 317. HCG was negative. Triglycerides were 342, cholesterol 195, LDL was 88.6 and HDL was 61. Urinalysis showed trace of intact blood, small amount of bilirubin and 3 to 5 urine RBCs. Her influenza type A and B per PCR were both negative. Abdominal x-ray showed essentially negative abdominal series without evidence of obstruction or free abdominal air with questionable minimal ileus in the central abdomen to the right of midline. Her abdominal ultrasound showed 1) Minimal steatosis of the liver with normal size and vascularity, ducts not dilated, smooth capsule with no ascites. 2) Gallbladder and common bile duct unremarkable. Pancreas appeared thickened and heterogeneous, but no cysts. Possible edema. Could represent pancreatitis. Duct not seen. 3) Right kidney with minimally thin cortex, but otherwise negative. Normal caliber of the proximal abdominal aorta and IVC. I was called for hospital admission for pancreatitis. She has had a history of pancreatitis approximately a year ago. At that time, her electrolytes were severely out of balance and she was very sick. She said she came in earlier this time because she figured it was pancreatitis again. Her mother did have pancreatitis after chemotherapy. She was admitted to the Floor and I did an abdominal CAT scan and it showed 1) Inflammatory changes observed throughout the entirety of the pancreas and diffuse pancreatic swelling is observed consistent with pancreatitis. The changes are more prominent than seen on the previous exam. 2) A small amount of fluid is observed in the anterior pararenal space. There is also a small amount of free fluid observed in the pelvis. No drainable abscess is detected. The patient was admitted in stable condition. LABORATORY: White count on admission was 9,600. Prior to discharge, it was 6,400. Hemoglobin and hematocrit were stable at 12.2 and 34.5 respectively. Platelet count 146,000. Differential showed a left shift that resolving prior to discharge. Coagulation studies showed normal PT, PTT. Chemistries on discharge just showed a low potassium at 3.1. Liver functions were within normal limits. Magnesium was a little bit low at 1.7. Lactic acid was normal at 1.3 and was never elevated. Initial lipase on admission was 1038 and prior to discharge was 234. TSH was normal at 3.17. Serum HCG negative. Amylase initially was 607 and was 185 prior to discharge. Urinalysis showed trace intact blood, small amount of bilirubin with microscopic showing 3 to 5 RBCs, 1 to 3 WBCs, 3 to 5 epithelials, rare bacteria. MICROBIOLOGY: Influenza A and B by PCR was negative. RADIOLOGY: Abdomen and chest x-ray in the Emergency Room per radiologic interpretation showed essentially negative abdominal series without any obstruction or free abdominal air with questionable minimal ileus in the central abdomen and right midline. This followed up with an abdominal ultrasound and per radiologic interpretation showed minimal steatosis of the liver with normal size and vasculature, ducts not dilated. Gallbladder and common bile duct were unremarkable. Pancreas appeared to be thickened and was heterogeneous with no cyst, possible edema which could represent pancreatitis. Duct was not seen. Right kidney with minimal thin cortex, but otherwise negative. Please see that report. This was followed up with an abdominopelvic CT and per radiologic interpretation with and without contrast showed inflammatory changes observed throughout the entirety of the pancreas and diffuse pancreatic swelling consistent with pancreatitis, small amount of fluid observed in the anterior perirenal space. There was a small amount of fluid observed in the pelvis, but no drainage abscess was detected. CONSULTATION: Mike Roberts MD. Please see his consultation note for details. HOSPITAL COURSE: Ms. Chapman was admitted for acute pancreatitis. She was started on IV fluids and kept NPO for bowel rest until her laboratories were returning to baseline and her pain was resolving. She was started on a clear liquid diet and advanced as tolerated. She was ambulating, tolerating a diet, having bowel movements, no longer having any abdominal pain and felt that she was clinically stable enough to continue with outpatient management. DISCHARGE ASSESSMENT: VITAL SIGNS: Temperature 97.6. Pulse 75. Blood pressure 150/90. Respirations 16. Oxygen saturation 100% on room air. GENERAL: The patient is resting comfortably, appears to be in no acute distress. CHEST: Clear to auscultation. HEART: Regular rate and rhythm. ABDOMEN: Soft, nontender. Positive bowel sounds. EXTREMITIES: No edema. NEUROLOGIC: Alert and oriented times 3. PLAN: Ms. Chapman was discharged on 11/17/19 to have followup with Dr. Roberts the following week after discharge. She was encouraged to ambulate. She was encouraged to push fluids to prevent dehydration. She was to keep a blood pressure log and take in to followup with her primary care physician in regards to the hypertension with Lew Perez in one or two weeks. She was to resume her normal diet and slowly increase as tolerated, but adhere to low fat content. Pain control was with Motrin and Tylenol as needed. She was told to return to the Emergency Room should she have any worsening of her symptoms. No new medications at discharge were ordered. CONDITION ON DISCHARGE: Stable and improving. DISPOSITION: The patient was discharged home. #[id number] [facility]
== END 2019-11-17 15:29 | disposition home or self-care (01) | DRG 439 ==
LOC: ER 10:11 → MS 14:30 → OBSVTOIN 14:30
PROVIDERS: ADMIT Nurse Practitioner Acute Care; ATTEND Nurse Practitioner Family
PROC: BW2110Z Computerized Tomography (CT Scan) of Abdomen and Pelvis using Low Osmolar Contrast, Unenhanced and Enhanced (ICD-10-PCS; principal; 2019-11-15)
DX: K85.90 Acute pancreatitis without necrosis or infection, unspecified (principal); I16.9 Hypertensive crisis, unspecified; I10 Essential (primary) hypertension; E86.0 Dehydration; R74.8 Abnormal levels of other serum enzymes; Z79.899 Other long term (current) drug therapy; Z87.891 Personal history of nicotine dependence

== ENCOUNTER 2020-01-01 17:28 | Emergency (ER) | payer BC ==
[2020-01-01 17:33] VITALS: TEMP 98
[2020-01-01] MEDS ORDERED: SODIUM CHLORIDE 0.9% 1000ML 1,000 ML IVS PRN (17:33)
[2020-01-01] MEDS ORDERED: SODIUM CHLORIDE 0.9% (FLUSH) 10 ML SYG IV PRN (17:33)
--- NOTE | 2020-01-01 20:45 | ED.PDOC ---
History of Present Illness - General Chief Complaint: Behavioral / Psych Stated Complaint: depressed Time Seen by Provider: 01/01/20 20:39 Source: patient, RN notes reviewed, Vital Signs reviewed Exam Limitations: no limitations - History of Present Illness Initial Comments: Patient presents from home feeling depressed, inebriated, denying suicidal ideation or attempt. Patient states she takes a lot of ibuprofen because of her endometriosis. Patient states she and her have been fighting and they have a rough marriage. She loves her 3 children and does not want them hurt or her to be hurt either. She feels safe at home and does not believe her will hurt her in any way. Timing/Duration: 4-6 hours Severity: moderate Worsening Factors: other - Worse when she drinks alcohol Associated Symptoms: malaise Allergies/Adverse Reactions: Allergies NO KNOWN ALLERGY Allergy (Verified 01/01/20 17:29) Home Medications: Ambulatory Orders Lisinopril 10 mg PO BEDTIME 12/10/18 Esomeprazole Magnesium [Nexium 24Hr] 20 mg PO DAILY PRN 11/15/19 Metoprolol Tartrate [Lopressor] 25 mg PO BEDTIME 11/15/19 cloNAZepam [Klonopin] 0.5 mg PO DAILY PRN 11/15/19 Review of Systems - Review of Systems Constitutional: States: see HPI, malaise. Denies: chills, fever EENTM: States: no symptoms reported. Denies: eye pain, blurred vision, double vision Respiratory: States: no symptoms reported. Denies: cough, short of breath, stridor Cardiology: States: no symptoms reported. Denies: chest pain, palpitations, syncope Gastrointestinal/Abdominal: States: no symptoms reported. Denies: abdominal pain, constipation, diarrhea, nausea, vomiting Genitourinary: States: no symptoms reported. Denies: dysuria, frequency Musculoskeletal: States: no symptoms reported. Denies: back pain, joint swelling, neck pain Skin: States: no symptoms reported. Denies: change in color, rash Neurological: States: no symptoms reported, see HPI, depressed, emotional problems. Denies: headache, numbness, paresthesia, seizure Endocrine: States: no symptoms reported Hematologic/Lymphatic: States: no symptoms reported All other Systems: Reviewed and Negative Past Medical History (General) - Patient Medical History Hx Seizures: No Hx Stroke: No Hx Dementia: No Hx Asthma: No Hx of COPD: No Hx Cardiac Disorders: No Hx Congestive Heart Failure: No Hx Pacemaker: No Hx Hypertension: No Hx Thyroid Disease: No Hx Diabetes: No Hx Gastroesophageal Reflux: No Hx Renal Disease: No Hx Cancer: No Hx of HIV: No Hx Hepatitis C: No Hx MRSA: No Surgical History: no surgical history - Vaccination History Hx Tetanus, Diphtheria Vaccination: Yes Hx Influenza Vaccination: Yes Hx Pneumococcal Vaccination: No Immunizations Up to Date: Yes - Social History Hx Tobacco Use: Yes - Quit 1999 Hx Chewing Tobacco Use: No Hx Alcohol Use: Yes Hx Substance Use: No Hx Substance Use Treatment: No Hx Depression: Yes - DEPRESSED TODAY Feels Threatened In Home Enviroment: No Feels Threatened In a Relationship: No Hx Physical Abuse: No Hx Emotional Abuse: No Hx Suspected Abuse: No - Activities of Daily Living Hospice Agency (if applicable):: None - Female History Patient : No Family Medical History - Family History Mother Family History: Unknown Living Status: Unknown Physical Exam - Physical Exam General Appearance: Alert, Anxious, Well Developed, Well Hydrated Eye Exam: bilateral normal Ears, Nose, Throat: hearing grossly normal, normal ENT inspection, normal pharynx - Except dry mucous membranes Neck: non-tender, full range of motion, supple, normal inspection Respiratory: chest non-tender, lungs clear, normal breath sounds, no respiratory distress, no accessory muscle use Cardiovascular/Chest: normal peripheral pulses, regular rate, rhythm, no edema, no gallop, no JVD, no murmur Peripheral Pulses: radial,right: 2+, radial,left: 2+ Gastrointestinal/Abdominal: normal bowel sounds, non tender, soft Back Exam: normal inspection, no CVA tenderness, no vertebral tenderness Extremity: normal range of motion, non-tender, normal inspection, no pedal edema, no calf tenderness 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 01/02/20 01:18 Patient has been asking multiple times to go home stating that she is not suicidal and does not want to harm herself. She was acutely intoxicated and once that blood alcohol level had improved after IV fluids and the tincture of time, [facility] came out to evaluate her. They believe she is safe for discharge home with a safety contract and are recommending outpatient therapy. I have discussed this plan of care with the patient she voices understanding and agreement and agrees to her safety contract with [facility]. Plan on discharge home with family at this time. Skip Muse M.D. #[id number] - Results/Orders Results/Orders: 01/01/20 17:33 IV Care:Saline Lock per Protoc QSHIFT Telemetry Q4H Sodium Chloride 0.9% (Flush) [Saline Flush Syringe] 10 ml IV PRN PRN Sodium Chloride 0.9% 1000ML [Ns 1000 ml] 1,000 ml IVS .QD 01/01/20 17:45 EKG STAT Laboratory Results - last 24 hr 01/01/20 01/01/20 01/01/20 17:46 17:46 17:55 WBC RBC Hgb Hct MCV MCH MCHC RDW Plt Count MPV Absolute Neuts (auto) Absolute Lymphs (auto) Absolute Monos (auto) Absolute Eos (auto) Absolute Basos (auto) Neutrophils % Lymphocytes % Monocytes % Eosinophils % Basophils % PT INR PTT (SP) Sodium 142 Potassium 3.6 Chloride 107 Carbon Dioxide 23 Anion Gap 15.6 BUN 12 Creatinine 0.78 BUN/Creatinine Ratio 15.4 Random Glucose 132 H Serum Osmolality 284.7 Calcium 9.1 Total Bilirubin 0.4 AST 33 ALT 32 Alkaline Phosphatase 63 Creatine Kinase 78 CK-MB (CK-2) 1.5 CK-MB (CK-2) % Not Reportable Troponin I < 0.02 Serum Total Protein 8.0 Albumin 4.7 Globulin 3.3 Albumin/Globulin Ratio 1.4 Serum HCG, Qual Urine Color Yellow Urine Appearance Clear Urine pH 7.0 Ur Specific [place] 1.015 Urine Protein Negative Urine Glucose (UA) Negative Urine Ketones Negative Urine Blood Negative Urine Nitrite Negative Urine Bilirubin Negative Urine Urobilinogen 0.2 Ur Leukocyte Esterase Negative Urine RBC 0 Urine WBC 0 Ur Epithelial Cells 0-1 Amorphous Sediment 1+ Urine Bacteria 0 Salicylates < 4.0 Urine Opiates Screen Negative Acetaminophen < 10.0 L Urine Barbiturates Negative Ur Phencyclidine Scrn Negative U Amphetamin/Meth Scrn Negative U Benzodiazepines Scrn Negative U Cocaine Metab Screen Negative U Cannabinoids Screen Negative Ethyl Alcohol 01/01/20 01/01/20 01/01/20 17:55 17:55 17:55 WBC 5.5 RBC 4.45 Hgb 14.8 Hct 43.0 MCV 96.7 MCH 33.3 H MCHC 34.4 RDW 13.3 Plt Count 224 MPV 7.6 Absolute Neuts (auto) 3.50 Absolute Lymphs (auto) 1.70 Absolute Monos (auto) 0.30 Absolute Eos (auto) 0.10 Absolute Basos (auto) 0.00 Neutrophils % 62.7 Lymphocytes % 30.0 Monocytes % 5.4 Eosinophils % 1.2 Basophils % 0.7 PT 9.9 INR 1.00 PTT (SP) 22.5 Sodium Potassium Chloride Carbon Dioxide Anion Gap BUN Creatinine BUN/Creatinine Ratio Random Glucose Serum Osmolality Calcium Total Bilirubin AST ALT Alkaline Phosphatase Creatine Kinase CK-MB (CK-2) CK-MB (CK-2) % Troponin I Serum Total Protein Albumin Globulin Albumin/Globulin Ratio Serum HCG, Qual Urine Color Urine Appearance Urine pH Ur Specific [place] Urine Protein Urine Glucose (UA) Urine Ketones Urine Blood Urine Nitrite Urine Bilirubin Urine Urobilinogen Ur Leukocyte Esterase Urine RBC Urine WBC Ur Epithelial Cells Amorphous Sediment Urine Bacteria Salicylates Urine Opiates Screen Acetaminophen Urine Barbiturates Ur Phencyclidine Scrn U Amphetamin/Meth Scrn U Benzodiazepines Scrn U Cocaine Metab Screen U Cannabinoids Screen Ethyl Alcohol 346.10 H* 01/01/20 01/01/20 17:55 23:50 WBC RBC Hgb Hct MCV MCH MCHC RDW Plt Count MPV Absolute Neuts (auto) Absolute Lymphs (auto) Absolute Monos (auto) Absolute Eos (auto) Absolute Basos (auto) Neutrophils % Lymphocytes % Monocytes % Eosinophils % Basophils % PT INR PTT (SP) Sodium Potassium Chloride Carbon Dioxide Anion Gap BUN Creatinine BUN/Creatinine Ratio Random Glucose Serum Osmolality Calcium Total Bilirubin AST ALT Alkaline Phosphatase Creatine Kinase CK-MB (CK-2) CK-MB (CK-2) % Troponin I Serum Total Protein Albumin Globulin Albumin/Globulin Ratio Serum HCG, Qual Negative Urine Color Urine Appearance Urine pH Ur Specific [place] Urine Protein Urine Glucose (UA) Urine Ketones Urine Blood Urine Nitrite Urine Bilirubin Urine Urobilinogen Ur Leukocyte Esterase Urine RBC Urine WBC Ur Epithelial Cells Amorphous Sediment Urine Bacteria Salicylates Urine Opiates Screen Acetaminophen Urine Barbiturates Ur Phencyclidine Scrn U Amphetamin/Meth Scrn U Benzodiazepines Scrn U Cocaine Metab Screen U Cannabinoids Screen Ethyl Alcohol 226.80 H* EKG performed on 01 January 2020 at 1757 hrs.: Normal sinus rhythm at 85 bpm, normal axis deviation, no ST or T wave changes, normal EKG. Departure - Departure Clinical Impression: Dehydration Depression Qualifiers: Depression Type: other depression Qualified Code(s): F32.89 - Other specified depressive episodes Alcohol intoxication Qualifiers: Complication of substance-induced condition: uncomplicated Qualified Code(s): F10.920 - Alcohol use, unspecified with intoxication, uncomplicated Time of Disposition: : Disposition: Discharge to Home or Self Care Condition: Good Departure Forms: ED Discharge - Pt. Copy, Patient Portal Self Enrollment Instructions: Depression, Adult (DC), Alcohol Poisoning (DC) Diet: resume usual diet Activity: increase activity as tolerated Referrals: SOPHIA ESTRELLA [facility] [Primary Care Provider] - 1-5 Days Home Medications: Ambulatory Orders Lisinopril 10 mg PO BEDTIME 12/10/18 Esomeprazole Magnesium [Nexium 24Hr] 20 mg PO DAILY PRN 11/15/19 Metoprolol Tartrate [Lopressor] 25 mg PO BEDTIME 11/15/19 cloNAZepam [Klonopin] 0.5 mg PO DAILY PRN 11/15/19
[2020-01-02 01:37] VITALS: BP 165/108; O2SAT 96
== END 2020-01-02 01:27 | disposition home or self-care (01) ==
LOC: ER 17:28
DX: F32.9 Major depressive disorder, single episode, unspecified (principal); F10.920 Alcohol use, unspecified with intoxication, uncomplicated; E86.0 Dehydration; Y90.8 Blood alcohol level of 240 mg/100 ml or more; Z79.899 Other long term (current) drug therapy; Z87.891 Personal history of nicotine dependence
CPT/HCPCS: 80053; 80307; 80320; 80329; 81001; 82550; 82553; 84484; 84703; 85025; 85610; 85730; 93005; J7030

== ENCOUNTER → 2020-10-01 | Outpatient (CLI) | payer BC ==
--- NOTE | 2020-10-05 09:22 | MAM ---
EXAM DESCRIPTION: 3D Screening BILATERAL : Digital Mammography. CLINICAL HISTORY: 45 years Female SCREEN . No complaints. No family history of breast cancer. Menarche age 15. Lanette age 30. Menopause age 42. No HRT.. Lifetime risk of developing breast cancer (Tyrer-Cuzick model)(%): 10.8. COMPARISON: Bilateral screening digital breast tomosynthesis September 2019 and August 2017 TECHNIQUE: Bilateral CC and MLO projection full-field images digital tomosynthesis mammographic technique. Bilateral digital 2-D full-field MLO images. CAD available for 2-D images. FINDINGS: The breast parenchymal density pattern is: Scattered areas of fibroglandular density. Axillary nodes. Solitary microcalcifications and coarse calcifications. Asymmetrically increased fibroglandular dense tissues in the upper outer quadrant of the right breast compared to the left. This is stable. Large inframammary lymph node stable lower inner quadrant right breast. No skin thickening or nipple retraction No new focal, stellate mass or density, focal asymmetry , and no suspicious microcalcifications bilaterally. Stable mammograms compared to prior study. IMPRESSION: Benign exam. BIRAD CATEGORY: 2 BENIGN FINDINGS. RECOMMENDATIONS: FOLLOW UP: Routine digital bilateral mammographic screening, one year interval from September 2020. Written communication explaining the IMPRESSION and follow-up, will be mailed to the patient and referring health care provider. According to the [employer], yearly mammograms are recommended starting at age 40 and continuing as long as a woman is in good health. Any breast change noted on a breast self-exam should be reported promptly to the patient's healthcare provider. Breast MRI is recommended for women with an approximately 20-25% or greater lifetime risk of breast cancer, including women with a strong family history of breast or ovarian cancer and women who have been treated for Hodgkin's disease. A negative mammographic report should not delay tissue diagnosis in patients with significant clinical history or physical findings. Extremely dense breast tissue limits the sensitivity of digital mammography. Electronically signed by: Conrado Vega MD 10/05/2020 9:21 AM [facility]
== END ==
LOC: MAMMO 09:45
PROVIDERS: ATTEND Obstetrics & Gynecology
DX: Z12.31 Encounter for screening mammogram for malignant neoplasm of breast (principal)